=== PATIENT | female | born 1965 | race Caucasian/White ===

== ENCOUNTER 2020-08-16 14:01 | Inpatient (IN) | payer OTHER, SELFPAY ==
--- NOTE | ~2020-08-16 | XR_ITS ---
EXAMINATION: XR HIP, LEFT and one view of the pelvis CLINICAL INFORMATION: Pain post fall COMPARISON: None TECHNIQUE: Two views of the left hip and one view of the pelvis. FINDINGS: Bone alignment is normal. No fracture or dislocation is seen. The joint space is normal. Bones of the pelvis are normal. There is arthritis of the visualized lower lumbar spine. Soft tissue calcification adjacent to the bilateral inferior pubic rami. XR/XR hip LT w PEL1V IMPRESSION: No fracture or dislocation.
--- NOTE | ~2020-08-16 | CT_ITS ---
EXAMINATION: CTA CHEST and ABDOMEN AND PELVIS WITH CONTRAST CLINICAL INFORMATION: Tachycardia, assess for pulmonary embolism COMPARISON: No pertinent prior studies are available for comparison. TECHNIQUE: Multidetector volumetric imaging was performed from the thoracic inlet through the pubic symphysis following administration of oral and 100 mL of Omnipaque 300 intravenous contrast. Sagittal and coronal reformatted images were obtained on the technologist workstation. This CT examination was performed using dose optimization techniques as appropriate, variously including the following: *Automated exposure control *Adjustment of mA and/or kV according to patient size (this includes techniques or standardized protocols for targeted exams where dose is matched to indication/reason for exam; i.e. extremities or head) *Use of iterative reconstruction technique DLP: 1250 mGy-cm FINDINGS: CHEST: LUNGS: The lungs are clear with no evidence of inflammation or nodules. MEDIASTINUM: The mediastinum is deviation of the mediastinal structures to the left due to marked elevation/infiltration of the right hemidiaphragm. No hernia. There are acute pulmonary emboli to the segmental pulmonary arteries on the right and subsegmental pulmonary arteries on the left. Motion degradation limits assessment. There is a pulmonary infarct grossly. No evidence of a right heart strain. No pathologic adenopathy. No hilar or mediastinal lymphadenopathy. PERICARDIUM/PLEURA: There is no significant effusion. No pleural mass or thickening. CHEST WALL/AXILLA: Unremarkable. ABDOMEN/PELVIS: LIVER, GALLBLADDER, BILIARY TREE: The liver is normal in size, shape, and attenuation. No focal hepatic lesion or biliary ductal dilatation is present. The gallbladder is unremarkable with no evidence of radiopaque gallstones, gallbladder wall thickening, or pericholecystic inflammatory changes. PANCREAS: Unremarkable. SPLEEN: Unremarkable. ADRENAL GLANDS: Unremarkable. KIDNEYS AND URETERS: The kidneys are normal in size, shape, and attenuation. No hydronephrosis or hydroureter or calculi seen. No perinephric stranding. BLADDER: Unremarkable. GASTROINTESTINAL TRACT: Relatively pronounced diverticulosis without acute inflammatory changes. There is a relatively thick-walled segment of small bowel in the left upper abdomen uncertain significance. This can be seen with entities such as sprue. If there is clinical uncertainty, recommend MR or CT enterography electively for further assessment. Normal appendix. No fluid collection. ABDOMINAL WALL: Relatively small abdominal wall defect at the level the umbilicus with herniation of omentum. Defect measures approximately 2 cm craniocaudal and 2.2 cm transverse. No bowel involvement. LYMPH NODES: Normal. VASCULAR: Unremarkable. PELVIC VISCERA: Unremarkable. OSSEOUS STRUCTURES: Unremarkable. CT/CT angio chest PE protocol IMPRESSION: 1. There is evidence of segmental and subsegmental acute pulmonary emboli. 2. Diverticulosis without acute inflammatory changes. 3. There is a long segment of thickened small bowel in the left upper quadrant involving the jejunum. See discussion above. Recommend follow-up. Appearance favors nonspecific infectious inflammatory processes with infiltrating lesion is not excluded. No obstruction. 4. Abdominal wall hernia at the level of the umbilicus containing omentum only. This critical result was discussed with Destiny Valencia NP at 11:42 PM on 08/16/2020 and it was ascertained that the content and urgency of the report was understood at the time of direct communication.
--- NOTE | ~2020-08-16 | XR_ITS ---
EXAMINATION: XR LUMBOSACRAL SPINE CLINICAL INFORMATION: Low back pain status post fall COMPARISON: None TECHNIQUE: Three views of the lumbosacral spine. FINDINGS: Severe degenerative disc disease is seen at L1-2 and L2-3. There is normal lumbar lordosis and spinal alignment. Moderate bilateral hypertrophic facet arthropathy seen at L4-5 and L5-S1, right greater than left. The vertebral bodies are intact. The soft tissues are unremarkable. XR/XR lumbar spine 2-3V IMPRESSION: Multilevel degenerative changes as detailed above without definitive acute abnormality.
--- NOTE | ~2020-08-16 | CT_ITS ---
EXAMINATION: CT ENTEROGRAPHY ABDOMEN AND PELVIS WITH CONTRAST CLINICAL INFORMATION: Evaluate small intestine lesion/mass COMPARISON: Previous CT scan of the abdomen and pelvis 08/16/2020 TECHNIQUE: Study performed with oral VoLumen (1350 mL) and 480 mL of water to distend the abdomen. The patient was injected with 85 mL Omnipaque 350 intravenous contrast which was administered without adverse effect. Coronal and sagittal reformatted images were obtained at the technologist's workstation. This CT examination was performed using dose optimization techniques as appropriate, variously including the following: *Automated exposure control *Adjustment of mA and/or kV according to patient size (this includes techniques or standardized protocols for targeted exams where dose is matched to indication/reason for exam; i.e. extremities or head) *Use of iterative reconstruction technique DLP: 1466 mGy-cm FINDINGS: GASTROINTESTINAL FINDINGS: Exam is limited due to motion artifact. Stomach: Well-distended and normal in appearance. Small intestine: Satisfactorily distended. There are still distended fluid-filled loops of small bowel with mild proximal small bowel wall thickening similar to previous CT 08/16/2020. No definite small bowel mass is seen. There is no evidence of obstruction. Large intestine: Diverticulosis.. No perirectal changes demonstrated. The appendix is normal. Additional findings: No abnormal enhancement of the vasa recta or significant mesenteric or retroperitoneal lymphadenopathy is seen. No abdominal abscess or fistulous tract demonstrated. ABDOMINAL AND PELVIC CT FINDINGS: Liver, gallbladder, biliary tract: Fatty liver. Normal-appearing gallbladder and normal caliber bile ducts. Pancreas: Normal Spleen: Normal Adrenal glands and kidneys: Normal Ureters and bladder: Normal Lymphovascular structures: Normal Abdominal wall: Large umbilical hernia containing fat. Bones: Degenerative changes of the spine. Mild curvature of the lower lumbar spine to the right. Lung bases: Normal. CT/CT enterography IMPRESSION: Limited exam due to artifact from motion. Distended fluid-filled loops of small bowel with mild proximal small bowel wall thickening. No mass seen. Findings are similar to 08/16/2020 exam. Infectious and inflammatory processes should be considered, in particular a celiac disease. Diverticulosis of the colon. Large umbilical hernia containing fat. Fatty liver.
[2020-08-16 14:10] VITALS: BP 160/110; PULSE 120; O2SAT 97
[2020-08-16 15:50] VITALS: BP 154/103; PULSE 115; RESP 20; TEMP 37.4; O2SAT 94; BMI 61.2
--- NOTE | 2020-08-16 16:44 | ED_ITS ---
HPI - Back Pain/Injury General Chief Complaint: Back Pain/Injury Stated Complaint: LOW L BACK PAIN, H/O SAME Time Seen by Provider: 08/16/20 14:11 Source: patient and EMS Mode of arrival: EMS Limitations: no limitations History of Present Illness HPI Narrative: 54 y/o female with history of morbid obesity, low back pain for the last 2+ months, recently seen at Urgent Care and by her PCP and started on muscle relaxers & steroids who presents to the ED via EMS with left low back pain s/p fall this afternoon. She states she went to sit on a plastic chair in her kitchen when one of the legs broke and she fell on her buttocks. She was able to crawl to the living room and her family members were able to get her to thr cough. She reports left lower back pain in the same spot as before. No radiation, no numbness or tingling. She is only able to walk with short shuffling steps due to the pain. She describes it as severe spasm. No urinary symptoms, N/V or abdominal pain. No SOB, chest pain or palpitations. No li ghtheaded or dizziness. She also fell about a week and a half ago in her yard when she was trying to warehouse order picker dog poop & lost her balance. She lives home alone and has been having trouble getting around and performing her ADL's due to pain. MD elicited complaint: back pain, back injury and fall Pertinent past history: prior back pain Onset (ago): week(s) Timing: constant Severity: moderate Similar Symptoms Previously: Yes Quality: aching and spasming Location: left lower back Radiation: buttocks Exacerbating factors: movement and walking Context: fall Associated symptoms: difficulty walking Work related injury: No Related Data Home Medications Medication Instructions Recorded Confirmed Vitamin D3 1 tab PO DAILY 08/16/20 08/16/20 albuterol sulfate 2 puff INHALATION Q4-6H PRN 08/16/20 08/16/20 albuterol sulfate 3 ml INHALATION QID PRN 08/16/20 08/16/20 budesonide-formoterol [Symbicort] 2 puff INHALATION BID 08/16/20 08/16/20 cyclobenzaprine 1 tab PO TID PRN 08/16/20 08/16/20 gabapentin 1 cap PO TID 08/16/20 08/16/20 tizanidine 1 tab PO BEDTIME PRN 08/16/20 08/16/20 Allergies Allergy/AdvReac Type Severity Reaction Status Date / Time loratadine [From CLARITIN] AdvReac Unknown LOOSES HAIR Verified 08/16/20 15:49 BP pills AdvReac Unknown muscle Uncoded 06/10/20 07:58 cramps/ sobia horses Review of Systems Review of Systems: Constitutional: No Fever, No Chills ENT/Mouth: No sore throat, No Rhinorrhea, No Swallowing Difficulty Cardiovascular: No Chest Pain, No SOB Respiratory: No Cough, No Sputum Gastrointestinal: No Nausea, No Vomiting, No Diarrhea, No abdominal Pain Genitourinary: No Dysuria, No Urinary Frequency, No Hematuria Musculoskeletal: + joint pain (left SI), + Myalgias Skin: No Skin Lesions, No rash Neuro: No Weakness, No Numbness, No Dizziness, No Headache Psych: No Anxiety/Panic, No Depression Heme/Lymph: No Bruising, No Lymphadenopathy Endocrine: No Polyuria, No Polydipsia PMFSH Past Medical History Attestation statement: The following information was validated with the patient. Medical History Anxiety Asthma Carpal tunnel syndrome Hypertension Osteoarthritis of both knees Surgical History History of Family History Family History Father Lung cancer Mother No problems noted. Social History Social History Advance Directives: No Advance Directives Information Provided: Yes Patient : No Physical Exam Vital Signs: Vital Signs: Last Vital Signs Temp 99.3 F 08/16/20 15:50 Pulse 115 H 08/16/20 15:50 Resp 20 08/16/20 15:50 BP 154/103 H 08/16/20 15:50 Pulse Ox 94 08/16/20 15:50 Body Mass Index 61.2 Appearance: Alert. Oriented X3. No acute distress. Eyes: Pupils equal, round and reactive to light. ENT: Pharynx normal. Neck: Normal inspection. Neck supple. CVS: Tachycardic, regular rhythm. Pulses normal. Respiratory: No respiratory distress. Breath sounds normal. Abdomen: Morbidly obese and nontender. +BS x4, erythematous rash under pannus Skin: Skin warm and dry. Normal skin color. Normal skin turgor. Extremities: No lower extremity edema. Left hip tenderness laterally and posteriorly. Left SI joint tenderness. No ecchymosis. Neuro: Oriented X 3. No motor deficit. No sensory deficit. Very slow movement, in a wheelchair, very slow to get up. Course Course Course Narrative: 54 y/o female presenting with acute on chronic left lower back pain s/p fall from chair today when chair leg broke. XR lumbar spine is negative for acute fractures, showed degenerative changes. Concern about safety going home given limited mobility, pain, obesity and living home alone. Initially declining evaluation for STR but after speaking with family she is agreeable to PT evaluation and discussing placement options with Case Management tomorrow until her back pain and mobility are improved. Tachycardic on arrival, likely due to pain. Will check EKG and basic labs. Pain medications ordered, will reassess. Reevaluation(s) Reevaluation #1: HR improve low 100's, BP 150/110's. Denies being on any medications for HTN. Med rec pending. Labs show WBC 14K. UA with only trace LE, 1-4 WBC and 3+ epithetial cells & bacteria. Likely contaminated sample. No urinary symptoms. Will hold off on antibiotics for now. DDIMER markedly elevated 3294. Will need to r/o PE with CTA chest. She continues to deny SOB or chest pain. COVID swab ordered. Will also scan abd for other possible source of infection, and for better assessment of her left hip and buttock pain which continue to be her only complaint. Patient agreeable with plan. Signed out to Jessica COATS who will assume care. MDM - Back Pain/Injury MDM Narrative Medical decision making narrative: r/o lumbar compression fracture Differential Diagnosis Differential diagnosis: Likely lumbar radiculopathy, sciatica and strain of lumbar region Medical Records Attestation: I reviewed the patient's medical records. Lab Data Attestation: I reviewed the patient's lab results. Result diagrams: 08/16/20 17:31 08/16/20 17:31 Labs: Lab Results 08/16/20 08/16/20 08/16/20 Range/Units 17:31 17:31 17:31 WBC 14.7 H (4.8-10.8) X10*3/uL RBC 5.25 (4.20-5.50) X10*6/uL Hgb 15.0 (12.0-16.0) g/dl Hct 46.2 (37-47) % MCV 88.0 (80-98) fL MCH 28.6 (27.0-33.0) pg MCHC 32.5 (31.0-35.0) g/dl RDW 14.6 (11.0-16.0) % Plt Count 280 (160-400) X10*3/uL MPV 10.4 (9.4-12.3) fL Immature Gran % (Auto) 0.7 H (0.0-0.4) % Neut % (Auto) 67.7 (45-73) % Lymph % (Auto) 19.1 L (20-40) % Dauphin % (Auto) 10.5 (2-11) % Eos % (Auto) 1.7 (0-4) % Baso % (Auto) 0.3 (0-2) % Lymph # (Auto) 2.8 (1.2-4.9) X10*3/uL Dauphin # (Auto) 1.6 H (0.1-1.2) X10*3/uL Eos # (Auto) 0.3 (0.0-0.4) X10*3/uL Baso # (Auto) 0.0 (0.0-0.2) X10*3/uL Abs Immat Gran (auto) 0.10 H (0.00-0.03) X10*3/uL Absolute Neuts (auto) 10.0 H (2.0-8.3) X10*3/uL Absolute Nucleated RBC 0.000 (0.0-0.012) X10*3/uL Nucleated RBC % (auto) 0.0 (0.0-0.2) /100WBC Smear Tech's Comments VERIFIED D-Dimer NG/ML Sodium 137 (135-145) mmol/L Potassium 4.7 (3.3-5.1) mmol/L Chloride 98 (96-108) mmol/L Carbon Dioxide 24 (22-29) mmol/L Anion Gap 20 (12-20) BUN 21 H (9-16) mg/dL Creatinine 1.00 (0.5-1.4) mg/dL Estim Creat Clear Calc 94.5 Estimated GFR 58 Random Glucose 155 H (60-115) mg/dL Calcium 10.1 (8.4-10.2) mg/dL Magnesium 2.2 (1.6-2.6) mg/dL Urine Color YELLOW Urine Appearance HAZY Urine pH 5.5 (5.0-8.0) Ur Specific Emmett >= 1.030 H (1.005-1.025) Urine Protein TRACE (NEG-TRACE) MG/DL Urine Glucose (UA) NEG (NEG) MG/DL Urine Ketones 5 (NEG) MG/DL Urine Blood NEG (NEG) Urine Nitrite NEG (NEG) Ur Leukocyte Esterase TRACE H (NEG) Urine RBC 0 (0) /HPF Urine WBC 1-4 (0-4) /HPF Ur Squamous Epith Cells 3+ /LPF Amorphous Sediment 2+ /LPF Urine Bacteria 3+ /LPF Hyaline Casts 1-4 /LPF Urine Mucus TRACE /LPF 08/16/20 Range/Units 19:56 WBC (4.8-10.8) X10*3/uL RBC (4.20-5.50) X10*6/uL Hgb (12.0-16.0) g/dl Hct (37-47) % MCV (80-98) fL MCH (27.0-33.0) pg MCHC (31.0-35.0) g/dl RDW (11.0-16.0) % Plt Count (160-400) X10*3/uL MPV (9.4-12.3) fL Immature Gran % (Auto) (0.0-0.4) % Neut % (Auto) (45-73) % Lymph % (Auto) (20-40) % Dauphin % (Auto) (2-11) % Eos % (Auto) (0-4) % Baso % (Auto) (0-2) % Lymph # (Auto) (1.2-4.9) X10*3/uL Dauphin # (Auto) (0.1-1.2) X10*3/uL Eos # (Auto) (0.0-0.4) X10*3/uL Baso # (Auto) (0.0-0.2) X10*3/uL Abs Immat Gran (auto) (0.00-0.03) X10*3/uL Absolute Neuts (auto) (2.0-8.3) X10*3/uL Absolute Nucleated RBC (0.0-0.012) X10*3/uL Nucleated RBC % (auto) (0.0-0.2) /100WBC Smear Tech's Comments D-Dimer 3294 NG/ML Sodium (135-145) mmol/L Potassium (3.3-5.1) mmol/L Chloride (96-108) mmol/L Carbon Dioxide (22-29) mmol/L Anion Gap (12-20) BUN (9-16) mg/dL Creatinine (0.5-1.4) mg/dL Estim Creat Clear Calc Estimated GFR Random Glucose (60-115) mg/dL Calcium (8.4-10.2) mg/dL Magnesium (1.6-2.6) mg/dL Urine Color Urine Appearance Urine pH (5.0-8.0) Ur Specific Emmett (1.005-1.025) Urine Protein (NEG-TRACE) MG/DL Urine Glucose (UA) (NEG) MG/DL Urine Ketones (NEG) MG/DL Urine Blood (NEG) Urine Nitrite (NEG) Ur Leukocyte Esterase (NEG) Urine RBC (0) /HPF Urine WBC (0-4) /HPF Ur Squamous Epith Cells /LPF Amorphous Sediment /LPF Urine Bacteria /LPF Hyaline Casts /LPF Urine Mucus /LPF ECG Data Attestation: I personally reviewed and interpreted this ECG as follows: ECG interpretation date: 08/16/20 ECG interpretation time: 18:34 Interpretation: sinus tachycardia with occasional PVC's, HR 122 bpm, left ventricular hypertrophy, normal QRS, normal QTc Discharge Plan Discharge Prescriptions: No Action cyclobenzaprine 10 mg tablet 1 tab PO TID PRN (Reason: muscle spasm) RF: 0 albuterol sulfate 2.5 mg /3 mL (0.083 %) solution for nebulization 3 ml inhalation QID PRN (Reason: wheezing) RF: 0 tizanidine 4 mg tablet 1 tab PO BEDTIME PRN (Reason: muscle spasm) RF: 0 gabapentin 100 mg capsule 1 cap PO TID RF: 0 albuterol sulfate 90 mcg/actuation HFA aerosol inhaler 2 puff inhalation Q4-6H PRN (Reason: Dyspnea) RF: 0 budesonide-formoterol [Symbicort] 160-4.5 mcg/actuation HFA aerosol inhaler 2 puff inhalation BID RF: 0 Vitamin D3 1 tab PO DAILY RF: 0
--- NOTE | 2020-08-16 17:08 | ECG_ITS ---
Test Reason : tachycardic Blood Pressure : / mmHG Vent. Rate : 122 BPM Atrial Rate : 122 BPM P-R Int : 140 ms QRS Dur : 096 ms QT Int : 306 ms P-R-T Axes : 058 -33 049 degrees QTc Int : 436 ms Sinus tachycardia with occasional Premature ventricular complexes Possible Left atrial enlargement Left axis deviation Left ventricular hypertrophy Abnormal ECG No previous ECGs available Referred By: Ania Ronquillo Electronically Signed By:HERMILO HAYNES
[2020-08-16] MEDS: HYDROcodone Bit/Acetam 5/325 TABLET 1 TAB PO (17:33)
[2020-08-16 17:38] LABS: Glucose Urine UA NEG (NEG); Leukocyte Esterase Urine TRACE (NEG); Nitrite Urine NEG (NEG); PH 5.5 (5.0-8.0); Specific Gravity - Urine >= 1.030 (1.005-1.025); UACC Culture Trigger YES; Urine Blood NEG (NEG); Urine Ketones 5 MG/DL (NEG); Urine Protein TRACE MG/DL (NEG-TRACE)
[2020-08-16 17:42] LABS: Basophils Percent Auto 0.3 % (0-2); Eosinophils Absolute Auto 0.3 X10*3/uL (0.0-0.4); Eosinophils Percent Auto 1.7 % (0-4); Hematocrit 46.2 % (37-47); Imm Gran Pct Auto 0.7 % (0.0-0.4); Lymphocytes Absolute Auto 2.8 X10*3/uL (1.2-4.9); Lymphocytes Percent Auto 19.1 % (20-40); MANUAL DIFF FLAG SCAN; Mean Corpuscular HGB Conc 32.5 g/dl (31.0-35.0); Mean Corpuscular Hemoglobin 28.6 pg (27.0-33.0); Mean Platelet Volume 10.4 fL (9.4-12.3); Monocytes Absolute Auto 1.6 X10*3/uL (0.1-1.2); Monocytes Percent Auto 10.5 % (2-11); Neutrophils Percent Auto 67.7 % (45-73); Platelet Count 280 X10*3/uL (160-400); Red Blood Count 5.25 X10*6/uL (4.20-5.50); Red Cell Distribution Width 14.6 % (11.0-16.0); SCAN SMEAR FLAG 1; White Blood Count 14.7 X10*3/uL (4.8-10.8)
[2020-08-16 17:43] LABS: Appearance Urine HAZY; Color Urine YELLOW
[2020-08-16 17:50] LABS: Bacteria Urine 3+ /LPF; RBC Urine 0 /HPF (0); Squamous Epithelial Cell Urine 3+ /LPF
[2020-08-16 17:51] LABS: Amorphous Sediment Urine 2+ /LPF; Mucus Urine TRACE /LPF
[2020-08-16 17:59] LABS: SLIDE REVIEW VERIFIED
[2020-08-16 18:11] LABS: Anion Gap 20 (12-20); Blood Urea Nitrogen 21 mg/dL (9-16); Calcium 10.1 mg/dL (8.4-10.2); Carbon Dioxide 24 mmol/L (22-29); Chloride 98 mmol/L (96-108); Creatinine Clr Calc Pharmacy 94.5; Estimated Glomerular Filt Rate 58; Glucose Random 155 mg/dL (60-115); Magnesium 2.2 mg/dL (1.6-2.6); Potassium 4.7 mmol/L (3.3-5.1); Sodium 137 mmol/L (135-145)
[2020-08-16 20:31] LABS: D Dimer 3294 NG/ML
[2020-08-16 21:53] VITALS: BP 121/77; PULSE 113; RESP 16; TEMP 36.6; O2SAT 95
[2020-08-16 22:05] LABS: COVID-19 Test Negative (Negative); IDNOW Serial# 9DD0AD1C
[2020-08-16] MEDS: Nystatin Powder 15 GM BOTTLE 1 APPL TOPICAL (22:12)
--- NOTE | 2020-08-16 22:22 | PC.NURSE ---
PT GIVEN 2 TURKEY SANDWICHES TO EAT WITHOUT ISSUE AT 6 PM AND WATER IV PLACED TO RIGHT AC PT AWARE OF LAC AND ELEVATED D DIMER BY PARTHA CAMERON. PT AWAITING CT SCAN.
[2020-08-16] MEDS: iohexoL 350 MG/ML 100 ML INFUS..BTL 85 ML IV (23:21)
[2020-08-17] VITALS (7 sets, daily range): BP systolic 102–139; BP diastolic 73–102; PULSE 106–122; RESP 14–23; TEMP 36.2–37; O2SAT 92–95
[2020-08-17] MEDS: HYDROcodone Bit/Acetam 5/325 TABLET 2 TAB PO ×2 (01:07→15:51)
[2020-08-17] MEDS: Apixaban 5 MG TABLET 10 MG PO ×3 (01:07→21:37)
--- NOTE | 2020-08-17 01:51 | CA_ITS ---
Transthoracic Echocardiogram Patient (Last, First, Middle): Brittaney Wolf A Gender: Female Date of : 1965 Age: 54 Procedure Date: 08/17/2020 Procedure Type: Transthoracic Echocardiogram Location: ICU Height: 160.02 cm Weight: 156.95 kg BSA: 2.44 m2 Heart Rate: bpm BP: 107 / 86 mmHg Edge Molder: STEPHANIE Referring MD: Beatrice Saleem MD Symptoms: b/l PE Study Quality: Fair ECG Rhythm: Sinus tachycardia Conclusions: - The left ventricular systolic function is normal. The visually estimated ejection fraction is between 55-60%. - There is moderate calcification of the aortic valve. - There is moderate mitral annular calcification. - There is mild dilatation of the ascending aorta measuring 4.00 cm. Findings Left Ventricle Normal left ventricular cavity size. There is moderately increased left ventricular wall thickness. The left ventricular systolic function is normal. The visually estimated ejection fraction is between 55-60%. There is no evidence of regional wall motion abnormalities. Diastolic function is normal for age. Right Ventricle Normal right ventricular cavity size and systolic function. Atria Both atria are normal in size. Aortic Valve There is moderate calcification of the aortic valve. There is no aortic valve stenosis. The peak aortic velocity is 2.32 m/s with a calculated peak gradient of 22 mmHg. The mean gradient is 12 mmHg. The aortic valve area is 2.08 cm2. There is trace (trivial) aortic valve regurgitation. Mitral Valve There is moderate mitral annular calcification. There is mild mitral valve regurgitation. There is no mitral valve stenosis. Pulmonic Valve The pulmonic valve was not well visualized. Tricuspid Valve Normal tricuspid valve structure. There is trace tricuspid valve regurgitation. The pulmonary artery systolic pressure is normal. Great Vessels There is mild dilatation of the ascending aorta measuring 4.00 cm. Venous The inferior vena cava is mildly dilated and collapses less than 50% with inspiration. Pericardium/Pleural There is no evidence of pericardial effusion. Prior Study Comparison No prior study available for comparison. Measurements 2D Linear Measurements IVSd: 1.52 0.6-0.9/0.6-1.0 cm LVIDd: 3.99 3.9-5.3/4.2-5.9 cm LVIDd Index: 1.64 2.4-3.2/2.2-3.1 cm/m2 LVIDs: 2.78 2.0-3.6 cm LVPWd: 1.37 0.7-1.1 cm Ao Root: 3.30 2.1-3.5 cm LA Diam: 4.70 2.7-3.8/3.0-4.0 cm LAIDs Index: 1.93 1.5-2.3 cm/m2 LV Mass: 272.63 67-162/88-224 g LV Mass Index: 111.73 43-95/49-115 g/m2 LVOT Diam: 2.10 3.0+(-)1.3 cm 2D Systolic Function EF 4C: 53.80 >55% EF 2C: 55.10 >55% EF BiP: 54.40 >55% Mitral Valve E'Lateral: 9.03 E'Medial: 10.00 Aortic Valve AoV Pk Juanjo: 2.32 AoV Mn Juanjo: 1.66 AoV VTI: 0.32 AoV Pk Grad: 22.00 Aov Mn Grad: 12.00 JOAQUIM Cont.VTI: 2.08 LVOT LVOT Pk Juanjo: 1.24 LVOT Mn Juanjo: 0.88 LVOT VTI: 0.19 LVOT Pk Grad: 6.00 LVOT Mn Grad: 4.00 LVOT Diam: 2.10 LVOT Area: 3.46 Diastolic Function E'Medial: 10.00 E' Laterial: 9.03 Tricuspid Valve TR Pk Juanjo: 1.82 TR Pk Grad: 13.00 RA Press: 15.00 RVSP: 28.00 Great Vessels Aorta Ao Root-2D: 3.30 2.0-3.7 cm Ao Asc: 4.00 2.1-3.4 cm Ao Arch: 2.80 Updated in Other Vendor System with Status of Final Narciso Del Real MD electronically signed on 08/17/2020 5:50:47 PM with status of Final
[2020-08-17] MEDS: cefTRIAXone sodium 1 GM in 0.9 % Sodium Chloride 50 ML IV (02:16)
--- NOTE | 2020-08-17 06:20 | PM.IMHP ---
History of Present Illness Date of Service: 08/17/20 Chief Complaint: back pain This is a 54-year-old female with past medical history of anxiety, asthma ,morbid obesity, hypertension, osteoarthritis who presents to the hospital with complaints of worsening back pain. Patient reports that she developed chronic SI joint pain about a month ago and has been struggling with that, today she was sitting on a plastic chair, moved her chair slightly, the leg of the chair broke and she fell to the floor with worsening hip pain and therefore decided to come to the hospital. Her pain is mostly on the left side, worse with walking, when walking she feels like her legs give out but she has no weakness numbness or tingling. She also feels muscle spasm. At this time patient denies feeling any headache, change in vision, no shortness of breath, no cough, no sputum production, no abdominal pain nausea or vomiting, no diarrhea constipation, no urinary symptoms including no dysuria, urgency or frequency and no lower extremity edema. Patient reports that due to the pain in her hip she has been mostly bed-bound and very immobile for the past 1 month. Patient reports very minimal movement. On arrival to the ED patient hemodynamically stable with no significant abnormal vitals Labs showed WBC count of 14.7, otherwise unremarkable, UA positive for trace leukocyte Estrace and 1-4 WBC, as well as 3+ squamous epithelia cells. Elevated D-dimer. Due to the elevated D-dimer patient underwent CT angiogram that showed of segmental and subsegmental acute pulmonary emboli, diverticulosis with no acute inflammatory change, long segment of thickened small bowel in the left upper quadrant involving the jejunum, this is uncertain significance. Past medical history as below lung confirmed this patient Review of Systems Review of Systems: Yes all other systems are reviewed and are negative [facility] Medical History Anxiety Asthma Carpal tunnel syndrome Hypertension Osteoarthritis of both knees Family History Father Lung cancer Mother No problems noted. Surgical History History of Social History Smoked in Last 30 Days: No Advance Directives: No Advance Directives Information Provided: Yes Patient : No Meds Allergies Allergy/AdvReac Type Severity Reaction Status Date / Time loratadine [From CLARITIN] AdvReac Unknown LOOSES HAIR Verified 08/16/20 15:49 BP pills AdvReac Unknown muscle Uncoded 06/10/20 07:58 cramps/ sobia horses Active Medications: Current Medications Generic Name Dose Route Start Last Admin Trade Name Freq PRN Reason Stop Dose Admin Acetaminophen 650 mg 08/17/20 01:51 Acetaminophen 325 Mg Tablet PO Q6H PRN Pain, Mild (Pain Scale 1-3) Hydrocodone Bitart/Acetaminophen 2 tab 08/16/20 23:48 08/17/20 01:07 Hydrocodone Bit/Acetam 5/325 Tablet PO 1 tab Q6H PRN Administration Pain, Mild (Pain Scale 1-3) Albuterol Sulfate 2.5 mg 08/17/20 01:51 Albuterol Sulfate (0.083%) 2.5 Mg/3 Ml Vial.Neb INHALE RQID PRN wheezing Albuterol Sulfate 2 puff 08/17/20 01:51 Albuterol Sulfate 90 Mcg 8 Gm Inhaler INHALE RQ4H PRN Dyspnea Apixaban 10 mg 08/17/20 09:00 Apixaban 5 Mg Tablet PO BID BRI Cyclobenzaprine HCl 10 mg 08/17/20 01:51 Cyclobenzaprine Hcl 10 Mg Tablet PO TID PRN muscle spasm Docusate Sodium 100 mg 08/17/20 01:51 Docusate Sodium 100 Mg Capsule PO DAILY PRN Constipation Fluticasone/Vilanterol 1 puff 08/17/20 08:00 Fluticasone/Vilanterol 200/25 Blst.W.Dev INHALE RDAILY BRI Gabapentin 100 mg 08/17/20 01:51 08/17/20 03:09 Gabapentin 100 Mg Capsule PO Not Given TID BRI Morphine Sulfate 2 mg 08/17/20 01:51 Morphine Sulfate 2 Mg/Ml Cartridge IVPUSH Q4H PRN Pain, Severe (Pain Scale 7-10) Nystatin 1 appl 08/16/20 21:00 08/16/20 22:12 Nystatin Powder 15 Gm Bottle TOPICAL 1 appl BID BRI Administration Protocol Ondansetron HCl 4 mg 08/17/20 01:51 Ondansetron Hcl 4 Mg/2 Ml Vial IVPUSH Q8H PRN Nausea and Vomiting Pharmacy Consult 1 each 08/16/20 18:50 Consult Rx Perform Med Rec MISCELLANE ONCE PRN Consult order Sodium Chloride 3 ml 08/17/20 08:00 0.9 % Sodium Chloride Flush 3 Ml Syringe IVFLUSH QSHIFT [facility] Tizanidine HCl 4 mg 08/17/20 01:51 Tizanidine Hcl 4 Mg Tablet PO BEDTIME PRN muscle spasm Home Medications Medication Instructions Recorded Confirmed Last Taken Type Vitamin D3 1 tab PO DAILY 08/16/20 08/16/20 08/15/20 History albuterol sulfate 2 puff INHALATION Q4-6H PRN 08/16/20 08/16/20 Unknown History albuterol sulfate 3 ml INHALATION QID PRN 08/16/20 08/16/20 Unknown History budesonide-formoterol [Symbicort] 2 puff INHALATION BID 08/16/20 08/16/20 Unknown History cyclobenzaprine 1 tab PO TID PRN 08/16/20 08/16/20 08/15/20 History gabapentin 1 cap PO TID 08/16/20 08/16/20 08/15/20 History tizanidine 1 tab PO BEDTIME PRN 08/16/20 08/16/20 08/15/20 History Physical Exam Vital Signs and Narrative: Vital Signs: Last Vital Signs Temp 97.8 F 08/16/20 21:53 Pulse 113 H 08/16/20 21:53 Resp 16 08/16/20 21:53 BP 121/77 08/16/20 21:53 Pulse Ox 95 08/16/20 21:53 Body Mass Index 61.2 Const: General: cooperative and no acute distress Orientation/consciousness: patient oriented x3 Eyes: General: appearance normal, both eyes and all related structures Resp: Effort & Inspection: normal respiratory effort and able to speak in complete sentences Cardio: Rate: regular rate Rhythm: regular rhythm GI: Palpation (GI): Soft to palpation Auscultation: normal bowel sounds Skin: General skin exam: no rashes or lesions noted Neuro: General: patient oriented x3 Cognition (Neuro): normal cognition Extrem: General: Yes normal to inspection and Yes no pedal edema Results Labs CBC and Chem 7: 08/16/20 17:31 08/16/20 17:31 Labs: Laboratory Results - last 24 hr 08/16/20 08/16/20 08/16/20 17:31 17:31 17:31 MCV 88.0 MCH 28.6 MCHC 32.5 RDW 14.6 Plt Count 280 MPV 10.4 Immature Gran % (Auto) 0.7 H Neut % (Auto) 67.7 Lymph % (Auto) 19.1 L Blaine % (Auto) 10.5 Eos % (Auto) 1.7 Baso % (Auto) 0.3 Lymph # (Auto) 2.8 Blaine # (Auto) 1.6 H Eos # (Auto) 0.3 Baso # (Auto) 0.0 Abs Immat Gran (auto) 0.10 H Absolute Neuts (auto) 10.0 H Absolute Nucleated RBC 0.000 Nucleated RBC % (auto) 0.0 Smear Tech's Comments VERIFIED D-Dimer Anion Gap 20 Estim Creat Clear Calc 94.5 Estimated GFR 58 Random Glucose 155 H Calcium 10.1 Magnesium 2.2 Urine Color YELLOW Urine Appearance HAZY Urine pH 5.5 Ur Specific [place] >= 1.030 H Urine Protein TRACE Urine Glucose (UA) NEG Urine Ketones 5 Urine Blood NEG Urine Nitrite NEG Ur Leukocyte Esterase TRACE H Urine RBC 0 Urine WBC 1-4 Ur Squamous Epith Cells 3+ Amorphous Sediment 2+ Urine Bacteria 3+ Hyaline Casts 1-4 Urine Mucus TRACE COVID-19 (JESSICA) COVID-19 Clin Com 08/16/20 08/16/20 19:56 21:19 MCV MCH MCHC RDW Plt Count MPV Immature Gran % (Auto) Neut % (Auto) Lymph % (Auto) Blaine % (Auto) Eos % (Auto) Baso % (Auto) Lymph # (Auto) Blaine # (Auto) Eos # (Auto) Baso # (Auto) Abs Immat Gran (auto) Absolute Neuts (auto) Absolute Nucleated RBC Nucleated RBC % (auto) Smear Tech's Comments D-Dimer 3294 Anion Gap Estim Creat Clear Calc Estimated GFR Random Glucose Calcium Magnesium Urine Color Urine Appearance Urine pH Ur Specific [place] Urine Protein Urine Glucose (UA) Urine Ketones Urine Blood Urine Nitrite Ur Leukocyte Esterase Urine RBC Urine WBC Ur Squamous Epith Cells Amorphous Sediment Urine Bacteria Hyaline Casts Urine Mucus COVID-19 (JESSICA) Negative COVID-19 Clin Com See Note Imaging Radiologist's Impressions: Impressions Lumbar Spine X-Ray 08/16/20 14:11 IMPRESSION: Multilevel degenerative changes as detailed above without definitive acute abnormality. Hip/Pelvis X-Ray 08/16/20 19:00 IMPRESSION: No fracture or dislocation. Chest CTA 08/16/20 20:36 IMPRESSION: 1. There is evidence of segmental and subsegmental acute pulmonary emboli. 2. Diverticulosis without acute inflammatory changes. 3. There is a long segment of thickened small bowel in the left upper quadrant involving the jejunum. See discussion above. Recommend follow-up. Appearance favors nonspecific infectious inflammatory processes with infiltrating lesion is not excluded. No obstruction. 4. Abdominal wall hernia at the level of the umbilicus containing omentum only. This critical result was discussed with Destiny Valencia NP at 11:42 PM on 08/16/2020 and it was ascertained that the content and urgency of the report was understood at the time of direct communication. Abdomen/Pelvis CT 08/16/20 20:39 IMPRESSION: 1. There is evidence of segmental and subsegmental acute pulmonary emboli. 2. Diverticulosis without acute inflammatory changes. 3. There is a long segment of thickened small bowel in the left upper quadrant involving the jejunum. See discussion above. Recommend follow-up. Appearance favors nonspecific infectious inflammatory processes with infiltrating lesion is not excluded. No obstruction. 4. Abdominal wall hernia at the level of the umbilicus containing omentum only. This critical result was discussed with Destiny Valencia NP at 11:42 PM on 08/16/2020 and it was ascertained that the content and urgency of the report was understood at the time of direct communication. Assessment and Plan (1) Bilateral pulmonary embolism: Status: Acute (2) Somatic dysfunction of left sacroiliac joint: Status: Acute (3) Lumbar paraspinal muscle spasm: Status: Acute This is a 54-year-old female who presents to the hospital with back as well as SI joint pain who is found to have PE. # bilateral PE - most likely induced by immobility and bed-bound status for the past 1 month due to the back pain - no evidence of right heart strain on CT angiogram - will start her on Eliquis 10 mg b.i.d. for 1 week followed by 5 b.i.d. - denies any lower extremity swelling, or pain - echocardiogram to rule out right heart strain - normal BNP # back pain as well as hip pain - continue pain management - muscle relaxer # Jejunum thickening seen on CT - non-specific - pt denies abd pain, diarrhea - may require f/p op # anxiety - continue tizanidine # asthma - not in exacerbation - continue home inhalers DVT prophylaxis: Mirian
[2020-08-17] MEDS: 0.9 % Sodium Chloride Flush 3 ML SYRINGE IVFLUSH ×3 (10:22→23:52)
[2020-08-17] MEDS: Fluticasone/Vilanterol 200/25 BLST.W.DEV 1 PUFF INHALE (10:23)
--- NOTE | 2020-08-17 15:25 | PC.NURSE ---
Assumed care at 1000am; patient admitted from Emergency room, [facility] [place] overflow patient. Patient is alert and oriented, denies pain, folliows commands, responds appropriately. Patient is on room air, breathing regularly and easily, denies chest discomfort or increased work of breathing. SpO2 91-95% on room air; lung sounds clear with dim bases, occassional dry cough. Patient HR has been slightly elevated, sinus tachycardia rate has been 110's - 120s at rest, up to 130s while oob to the coomode. Patient with malodorous urine, MD aware, UA had been collected and Urine cx is pending. Patient has some lower back pain, which is mostly about her hips, and affects her left hip more than her right hip at this time. Patient was medicated with Lorcet per Emar, but refused 2 tablets, which is how med is ordered, and was administered only one tablet, with good effect--pain was 5/10 dull ache and nonradiating, and is 0/10 on recheck; MD was notified as to difference between how patient takes the med and how it is ordered---no new orders at this time. Med education provided. Patient resting comfortably in bed now. Continuing to monitor.
[2020-08-17] MEDS: Nystatin Powder 15 GM BOTTLE 1 APPL TOPICAL (21:37)
[2020-08-18] VITALS (7 sets, daily range): BP systolic 107–168; BP diastolic 55–84; PULSE 97–119; RESP 15–22; TEMP 36.4–37.1; O2SAT 93–96
[2020-08-18] MEDS: HYDROcodone Bit/Acetam 5/325 TABLET 2 TAB PO ×2 (00:48→08:36)
[2020-08-18 05:28] LABS: MANUAL DIFF FLAG NO
[2020-08-18 05:55] LABS: Anion Gap 14 (12-20); Blood Urea Nitrogen 20 mg/dL (9-16); Calcium 9.3 mg/dL (8.4-10.2); Carbon Dioxide 28 mmol/L (22-29); Chloride 103 mmol/L (96-108); Creatinine Clr Calc Pharmacy 122.7; Estimated Glomerular Filt Rate > 60; Glucose Random 158 mg/dL (60-115); Potassium 4.5 mmol/L (3.3-5.1); Sodium 140 mmol/L (135-145)
[2020-08-18 06:00] LABS: Basophils Percent Auto 0.2 % (0-2); Eosinophils Absolute Auto 0.2 X10*3/uL (0.0-0.4); Eosinophils Percent Auto 2.5 % (0-4); Hematocrit 38.9 % (37-47); Hemoglobin 12.4 g/dl (12.0-16.0); Imm Gran Abs Auto 0.06 X10*3/uL (0.00-0.03); Imm Gran Pct Auto 0.7 % (0.0-0.4); Lymphocytes Absolute Auto 2.3 X10*3/uL (1.2-4.9); Lymphocytes Percent Auto 27.3 % (20-40); Mean Corpuscular HGB Conc 31.9 g/dl (31.0-35.0); Mean Corpuscular Hemoglobin 28.4 pg (27.0-33.0); Mean Corpuscular Volume 89.2 fL (80-98); Mean Platelet Volume 10.6 fL (9.4-12.3); Monocytes Absolute Auto 0.8 X10*3/uL (0.1-1.2); Monocytes Percent Auto 9.3 % (2-11); Platelet Count 210 X10*3/uL (160-400); Red Blood Count 4.36 X10*6/uL (4.20-5.50); White Blood Count 8.4 X10*3/uL (4.8-10.8)
[2020-08-18] MEDS: Apixaban 5 MG TABLET 10 MG PO (08:36)
[2020-08-18] MEDS: 0.9 % Sodium Chloride Flush 3 ML SYRINGE IVFLUSH ×3 (08:47→20:40)
--- NOTE | 2020-08-18 08:49 | MHC.CM.PN ---
Met with pt to discuss d/c planing: Pt states she resides alone and was working fulltime. She had an injury to her back and has been out of work and primarily bed ridden. She drives and has a son close by who can assist with small tasks if needed. Pt seen by PT who recommends STR. Pt agrees to broad payor based referrals - very worried about completing FMLA forms - referred her to f/u with her PCP - informed her that her [facility] visit summary will be sent to PCP office to assist with FMLA completion. Awaiting accepting SNF at this time.
[2020-08-18] MEDS: Docusate Sodium 100 MG CAPSULE PO (09:00)
[2020-08-18] MEDS: Nystatin Powder 15 GM BOTTLE 1 APPL TOPICAL ×2 (09:01→20:40)
[2020-08-18] MEDS: TiZANidine HCL 4 MG TABLET PO ×2 (10:36→20:47)
--- NOTE | 2020-08-18 14:08 | P.CNGI_ITS ---
History of Present Illness Data of Consult Service Date: 08/18/20 Requesting physician: Mya Schuler Primary Care Provider: Vinod Little, [facility]- HPI Reason for consult: abn imaging 54-year-old female with past medical history of anxiety, asthma ,morbid obesity, hypertension, osteoarthritis who I am seeing for assessment for abnormal bowel imaging. She actually came with increased back pain for 1 month being treated by providers with steroids and musc relaxants for presumed SI joint dysfunction. She has not been v mobile and has been having weakness in legs with pain on left lower back area worse with walking As part of w/u she had D-dimer checked which was pos, imaging then revealed segmental and subsegmental acute pulmonary emboli as well as diverticulosis with no acute inflammatory change, long segment of thickened small bowel in the left upper quadrant involving the jejunum of uncertain significance She denies feeling any headache, change in vision, no shortness of breath, no cough, no sputum production, no abdominal pain, nausea or vomiting, no diarrhea, constipation, no urinary symptoms including no dysuria, urgency or frequency and no lower extremity edema. Appetite and weight stable. Labs showed WBC count of 14.7, otherwise unremarkable, UA positive for trace leukocyte Estrace and 1-4 WBC, as well as 3+ squamous epithelia cells. Elevated D-dimer. Review of Systems Review of Systems: Constitutional : No Weight loss, No Fever, No Chills ENT/Mouth : No sore throat, No Rhinorrhea Eyes: No Swelling, No Redness Cardiovascular : No Chest Pain, No SOB, No Edema Respiratory : No Cough, No Sputum, No Wheezing Gastrointestinal : see HPI Genitourinary : NO Dysuria, No Urinary Frequency, No Hematuria, No Urgency Musculoskeletal : back pain Skin : No Skin Lesions, No rash Neuro : No facial droop Psych : No Anxiety/Panic, No Depression Heme/Lymph: No Bruising, No Lymphadenopathy Endocrine : No Polyuria, No Polydipsia All other systems reviewed and are negative. [facility] Past Medical History Medical History Anxiety Asthma Carpal tunnel syndrome Hypertension Osteoarthritis of both knees Family History Family History Father Lung cancer Mother No problems noted. Surgical History Surgical History History of Social History Social History Household Members: None Household Members Other:: PET DOG Housing: Apartment Do you presently have visiting nurse or other home services: No Smoking Status: Never smoker Smoked in Last 30 Days: No Second Hand Smoke Exposure: No Use of substances other than those prescribed or required for medical reasons: No Currently Displaying Signs/Symptoms of Drug Intoxication Withdrawal: No Have you been hit, kicked, punched, or otherwise hurt by someone within the past year? If so, by whom?: No Do you feel safe in your current relationship?: No Current Relationship Is there a partner from a previous relationship who is making you feel unsafe now?: No Are you made to feel afraid or neglected: No Spiritual Healthcare Practices: no Gnosticist Healthcare Practices: no Cultural Healthcare Practices: no Advance Directives: No Advance Directives Information Provided: Yes Do you have thoughts of harming others: None Do you have a plan to hurt others: No Plan Recently lost weight without trying: No Eating poorly because of decreased appetite: Yes Nutrition Risks: No Nutritional Risk Patient : No : No Poor oral hygiene: No service: No Current occupational status: employed Meds Allergies Allergy/AdvReac Type Severity Reaction Status Date / Time loratadine [From CLARITIN] AdvReac Unknown LOOSES HAIR Verified 08/16/20 15:49 BP pills AdvReac Unknown muscle Uncoded 06/10/20 07:58 cramps/ sobia horses Active Medications: Current Medications Generic Name Dose Route Start Last Admin Trade Name Freq PRN Reason Stop Dose Admin Acetaminophen 650 mg 08/17/20 01:51 Acetaminophen 325 Mg Tablet PO Q6H PRN Pain, Mild (Pain Scale 1-3) Hydrocodone Bitart/Acetaminophen 2 tab 08/16/20 23:48 08/18/20 08:36 Hydrocodone Bit/Acetam 5/325 Tablet PO 2 tab Q6H PRN Administration Pain, Mild (Pain Scale 1-3) Albuterol Sulfate 2.5 mg 08/17/20 01:51 Albuterol Sulfate (0.083%) 2.5 Mg/3 Ml Vial.Neb INHALE RQID PRN wheezing Albuterol Sulfate 2 puff 08/17/20 01:51 Albuterol Sulfate 90 Mcg 8 Gm Inhaler INHALE RQ4H PRN Dyspnea Cyclobenzaprine HCl 10 mg 08/17/20 01:51 Cyclobenzaprine Hcl 10 Mg Tablet PO TID PRN muscle spasm Docusate Sodium 100 mg 08/17/20 01:51 08/18/20 09:00 Docusate Sodium 100 Mg Capsule PO 100 mg DAILY PRN Administration Constipation Enoxaparin Sodium 150 mg 08/18/20 21:00 Enoxaparin Sodium 150 Mg/Ml Syringe SUBCUT Q12H BRI Fluticasone/Vilanterol 1 puff 08/17/20 08:00 08/18/20 07:59 Fluticasone/Vilanterol 200/25 Blst.W.Dev INHALE Not Given RDAILY BRI Gabapentin 100 mg 08/17/20 01:51 08/18/20 08:48 Gabapentin 100 Mg Capsule PO Not Given TID BRI Nystatin 1 appl 08/16/20 21:00 08/18/20 09:01 Nystatin Powder 15 Gm Bottle TOPICAL 1 appl BID BRI Administration Protocol Ondansetron HCl 4 mg 08/17/20 01:51 Ondansetron Hcl 4 Mg/2 Ml Vial IVPUSH Q8H PRN Nausea and Vomiting Pharmacy Consult 1 each 08/16/20 18:50 Consult Rx Perform Med Rec MISCELLANE ONCE PRN Consult order Sodium Chloride 3 ml 08/17/20 08:00 08/18/20 08:47 0.9 % Sodium Chloride Flush 3 Ml Syringe IVFLUSH 3 ml QSHIFT BRI Administration Tizanidine HCl 4 mg 08/17/20 01:51 08/18/20 10:36 Tizanidine Hcl 4 Mg Tablet PO 4 mg BEDTIME PRN Administration muscle spasm Home Medications Medication Instructions Recorded Confirmed Last Taken Type Vitamin D3 1 tab PO DAILY 08/16/20 08/16/20 08/15/20 History albuterol sulfate 2 puff INHALATION Q4-6H PRN 08/16/20 08/16/20 Unknown History albuterol sulfate 3 ml INHALATION QID PRN 08/16/20 08/16/20 Unknown History cyclobenzaprine 1 tab PO TID PRN 08/16/20 08/16/20 08/15/20 History gabapentin 1 cap PO TID 0508/16/20 08/15/20 History tizanidine 1 tab PO BEDTIME PRN 08/16/20 08/16/20 08/15/20 History Physical Exam Vital Signs: Vital Signs: Last Vital Signs Temp 98.8 F 08/18/20 11:40 Pulse 99 08/18/20 11:40 Resp 18 08/18/20 11:40 BP 133/77 08/18/20 11:40 Pulse Ox 95 08/18/20 11:40 Body Mass Index 61.2 EXAM: GENERAL: The patient is well developed and nontoxic, obese ++ VITAL SIGNS:see workflow HEENT: Nonicteric sclerae, PERRLA, EOMI. Oropharynx clear. Moist mucous membran es. Conjunctivae appear well perfused. No thyroid mass. CHEST: Chest wall is nontender. HEART: Regular rate and rhythm without murmurs. LUNGS: Clear to auscultation bilaterally. ABDOMEN: Soft, positive bowel sounds, nontender, no organomegaly.no flank tenderness SKIN: No rash, no excessive bruising, petechiae, or purpura. NEUROLOGIC: Cranial nerves II-XII intact without motor/sensory deficit. Eyes: General: appearance normal, both eyes and all related structures Skin: General skin exam: no rashes or lesions noted Extrem: General: No clubbing Psych: Appearance: grossly normal Results Labs CBC & Chem 7: 08/18/20 05:20 08/18/20 05:20 Labs: Short CBC 08/18/20 Range/Units 05:20 WBC 8.4 (4.8-10.8) X10*3/uL Hgb 12.4 (12.0-16.0) g/dl Hct 38.9 (37-47) % Plt Count 210 (160-400) X10*3/uL BMP 08/18/20 05:20 Sodium 140 Potassium 4.5 Chloride 103 Carbon Dioxide 28 BUN 20 H Creatinine 0.[address] personally reviewed, thickened small bowel noted appears to be distal duodenum and prox jejunum Microbiology Microbiology Results: Microbiology 08/16/20 17:34 Urine clean catch - Clean Catch Midstream Urine Culture - Final Assessment and Plan (1) Bilateral pulmonary embolism: Status: Acute (2) Mural thickening of small intestine: Status: Acute 1/ Abn imaging of proximal small bowel with background back pain and immobility. Crohns might be one explanation, other would be infiltrative disease such as lymphoma, neoplasia, amyloidosis PLAN: 1/ CTe to further analyze sma;; bowel 2/ depending on results can plan for push enteroscopy vs balloon enteroscopy 3/ consider putting on lovenox or heparin drip so will be wasy to do procedure if indicated Procedures Date of Service Date of Service: 08/18/20
--- NOTE | 2020-08-18 14:50 | P.PNIM_ITS ---
Subjective Subjective Date of Service: 08/18/20 Interval History: the patient was seen and evaluated this morning Laying in bed, feels little better but still tachycardic and feels shortness of breath with minimal exertion Denies any fever, chills or chest pain No reported other overnight events. Systemic review: No fever, chills or weakness No chest pain, feels heart racing Dyspnea on exertion with no cough No abdominal pain, nausea or vomiting No urinary symptoms No any rash or wounds Physical Exam Vital Signs: Vital Signs: Last Vital Signs Temp 98.8 F 08/18/20 11:40 Pulse 99 08/18/20 11:40 Resp 18 08/18/20 11:40 BP 133/77 08/18/20 11:40 Pulse Ox 95 08/18/20 11:40 Body Mass Index 61.2 Const: Other: Constitutional : Alert, oriented, morbidly obese, mild respiratory distress Neck : Normal inspection, Supple Cardiovascular : RRR, S1 S2, no lower extremity edema Respiratory : Fair bilateral air entry, no crackles, wheezes or rhonchi Gastrointestinal: soft, lax, Normal bowel sounds, Non tender Skin : Warm/Dry, No rash Neurological : Alert & oriented x3, No focal deficit Objective Data Current Medications Generic Name Dose Route Start Last Admin Trade Name Freq PRN Reason Stop Dose Admin Acetaminophen 650 mg 08/17/20 01:51 Acetaminophen 325 Mg Tablet PO Q6H PRN Pain, Mild (Pain Scale 1-3) Hydrocodone Bitart/Acetaminophen 2 tab 08/16/20 23:48 08/18/20 08:36 Hydrocodone Bit/Acetam 5/325 Tablet PO 2 tab Q6H PRN Administration Pain, Mild (Pain Scale 1-3) Albuterol Sulfate 2.5 mg 08/17/20 01:51 Albuterol Sulfate (0.083%) 2.5 Mg/3 Ml Vial.Neb INHALE RQID PRN wheezing Albuterol Sulfate 2 puff 08/17/20 01:51 Albuterol Sulfate 90 Mcg 8 Gm Inhaler INHALE RQ4H PRN Dyspnea Cyclobenzaprine HCl 10 mg 08/17/20 01:51 Cyclobenzaprine Hcl 10 Mg Tablet PO TID PRN muscle spasm Docusate Sodium 100 mg 08/17/20 01:51 08/18/20 09:00 Docusate Sodium 100 Mg Capsule PO 100 mg DAILY PRN Administration Constipation Enoxaparin Sodium 150 mg 08/18/20 21:00 Enoxaparin Sodium 150 Mg/Ml Syringe SUBCUT Q12H [facility] Fluticasone/Vilanterol 1 puff 08/17/20 08:00 08/18/20 07:59 Fluticasone/Vilanterol 200/25 Blst.W.Dev INHALE Not Given RDAILY BRI Gabapentin 100 mg 08/17/20 01:51 08/18/20 14:24 Gabapentin 100 Mg Capsule PO Not Given TID BRI Nystatin 1 appl 08/16/20 21:00 08/18/20 09:01 Nystatin Powder 15 Gm Bottle TOPICAL 1 appl BID BRI Administration Protocol Ondansetron HCl 4 mg 08/17/20 01:51 Ondansetron Hcl 4 Mg/2 Ml Vial IVPUSH Q8H PRN Nausea and Vomiting Pharmacy Consult 1 each 08/16/20 18:50 Consult Rx Perform Med Rec MISCELLANE ONCE PRN Consult order Sodium Chloride 3 ml 08/17/20 08:00 08/18/20 08:47 0.9 % Sodium Chloride Flush 3 Ml Syringe IVFLUSH 3 ml QSHIFT BRI Administration Tizanidine HCl 4 mg 08/17/20 01:51 08/18/20 10:36 Tizanidine Hcl 4 Mg Tablet PO 4 mg BEDTIME PRN Administration muscle spasm Labs CBC & Chem 7: 08/18/20 05:20 08/18/20 05:20 Microbiology Microbiology Results: Microbiology 08/16/20 17:34 Urine clean catch - Clean Catch Midstream Urine Culture - Final Assessment and Plan (1) Bilateral pulmonary embolism: Status: Acute (2) Somatic dysfunction of left sacroiliac joint: Status: Acute (3) Lumbar paraspinal muscle spasm: Status: Acute Assessment and Plan: This is a 54-year-old female who presents to the hospital with back as well as SI joint pain who is found to have PE. bilateral PE most likely induced by immobility and bed-bound status for the past 1 month due to the back pain\underlying malignancy no evidence of right heart strain on CT angiogram Discontinue Eliquis Start subcutaneous Lovenox full does echocardiogram showing EF 55-60% with moderate aortic and mitral valves calcifications normal BNP back pain as well as hip pain continue pain management muscle relaxer Small intestine lesion seen on CT in jejunal area pt denies abd pain, diarrhea GI will evaluate the patient with EGD on or Monday anxiety continue tizanidine asthma not in exacerbation continue home inhalers DVT prophylaxis Eliquis
[2020-08-18] MEDS: Cyclobenzaprine HCl 10 MG TABLET PO (15:53)
[2020-08-18] MEDS: Sorbitol/Mannit/Xanth Imaging 500 ML LIQUID 1500 ML PO (17:42)
[2020-08-18] MEDS: iohexoL 350 MG/ML 100 ML INFUS..BTL IV (17:44)
[2020-08-18] MEDS: Enoxaparin Sodium 150 MG/ML SYRINGE SUBCUT (20:39)
[2020-08-19] MEDS: Cyclobenzaprine HCl 10 MG TABLET PO ×3 (01:11→17:29)
[2020-08-19 03:04] VITALS: BP 111/58; PULSE 104; RESP 18; TEMP 36.9; O2SAT 96
[2020-08-19 06:30] LABS: Hematocrit 37.7 % (37-47); Hemoglobin 12.2 g/dl (12.0-16.0); Mean Corpuscular HGB Conc 32.4 g/dl (31.0-35.0); Mean Corpuscular Hemoglobin 28.6 pg (27.0-33.0); Mean Corpuscular Volume 88.3 fL (80-98); Mean Platelet Volume 10.5 fL (9.4-12.3); Platelet Count 229 X10*3/uL (160-400); Red Blood Count 4.27 X10*6/uL (4.20-5.50); Red Cell Distribution Width 14.9 % (11.0-16.0); White Blood Count 10.9 X10*3/uL (4.8-10.8)
[2020-08-19 06:50] LABS: Anion Gap 15 (12-20); Blood Urea Nitrogen 16 mg/dL (9-16); Calcium 9.4 mg/dL (8.4-10.2); Carbon Dioxide 29 mmol/L (22-29); Chloride 100 mmol/L (96-108); Creatinine Clr Calc Pharmacy 122.7; Estimated Glomerular Filt Rate > 60; Glucose Random 161 mg/dL (60-115); Potassium 4.2 mmol/L (3.3-5.1); Sodium 140 mmol/L (135-145)
[2020-08-19 07:33] VITALS: BP 143/75; PULSE 121; RESP 20; TEMP 36.5; O2SAT 93
[2020-08-19] MEDS: 0.9 % Sodium Chloride Flush 3 ML SYRINGE IVFLUSH ×3 (08:14→21:10)
[2020-08-19] MEDS: Enoxaparin Sodium 150 MG/ML SYRINGE SUBCUT ×2 (08:15→21:10)
--- NOTE | 2020-08-19 10:55 | P.PNIM_ITS ---
Subjective Subjective Date of Service: 08/19/20 Interval History: the patient was seen and evaluated this morning Laying in bed, feels better overall but still tachycardic and dyspnea with minimal exertion Denies any fever, chills or chest pain No reported other overnight events. Systemic review: No fever, chills but complaining of a lot of back pain No chest pain, feels heart racing Dyspnea on exertion with no cough No abdominal pain, nausea or vomiting No urinary symptoms No any rash or wounds Physical Exam Vital Signs: Vital Signs: Last Vital Signs Temp 97.7 F 08/19/20 07:33 Pulse 121 H 08/19/20 07:33 Resp 20 08/19/20 07:33 BP 143/75 H 08/19/20 07:33 Pulse Ox 93 08/19/20 07:33 Body Mass Index 61.2 Const: Other: Constitutional : Alert, oriented, morbidly obese, mild respiratory distress Neck : Normal inspection, Supple Cardiovascular : RRR, S1 S2, sinus tachycardia, no lower extremity edema Respiratory : Fair bilateral air entry, no crackles, wheezes or rhonchi Gastrointestinal: soft, lax, Normal bowel sounds, Non tender Skin : Warm/Dry, No rash Neurological : Alert & oriented x3, No focal deficit Objective Data Current Medications Generic Name Dose Route Start Last Admin Trade Name Freq PRN Reason Stop Dose Admin Acetaminophen 650 mg 08/17/20 01:51 Acetaminophen 325 Mg Tablet PO Q6H PRN Pain, Mild (Pain Scale 1-3) Hydrocodone Bitart/Acetaminophen 2 tab 08/16/20 23:48 08/18/20 08:36 Hydrocodone Bit/Acetam 5/325 Tablet PO 2 tab Q6H PRN Administration Pain, Mild (Pain Scale 1-3) Albuterol Sulfate 2.5 mg 08/17/20 01:51 Albuterol Sulfate (0.083%) 2.5 Mg/3 Ml Vial.Neb INHALE RQID PRN wheezing Albuterol Sulfate 2 puff 08/17/20 01:51 Albuterol Sulfate 90 Mcg 8 Gm Inhaler INHALE RQ4H PRN Dyspnea Cyclobenzaprine HCl 10 mg 08/17/20 01:51 08/19/20 01:11 Cyclobenzaprine Hcl 10 Mg Tablet PO 10 mg TID PRN Administration muscle spasm Docusate Sodium 100 mg 08/17/20 01:51 08/18/20 09:00 Docusate Sodium 100 Mg Capsule PO 100 mg DAILY PRN Administration Constipation Enoxaparin Sodium 150 mg 08/18/20 21:00 08/19/20 08:15 Enoxaparin Sodium 150 Mg/Ml Syringe SUBCUT 150 mg Q12H BRI Administration Fluticasone/Vilanterol 1 puff 08/17/20 08:00 08/19/20 07:30 Fluticasone/Vilanterol 200/25 Blst.W.Dev INHALE Not Given RDAILY BRI Gabapentin 100 mg 08/17/20 01:51 08/19/20 08:17 Gabapentin 100 Mg Capsule PO Not Given TID BRI Nystatin 1 appl 08/16/20 21:00 08/18/20 20:40 Nystatin Powder 15 Gm Bottle TOPICAL 1 appl BID BRI Administration Protocol Ondansetron HCl 4 mg 08/17/20 01:51 Ondansetron Hcl 4 Mg/2 Ml Vial IVPUSH Q8H PRN Nausea and Vomiting Pharmacy Consult 1 each 08/16/20 18:50 Consult Rx Perform Med Rec MISCELLANE ONCE PRN Consult order Sodium Chloride 3 ml 08/17/20 08:00 08/19/20 08:14 0.9 % Sodium Chloride Flush 3 Ml Syringe IVFLUSH 3 ml QSHIFT [facility] Administration Tizanidine HCl 4 mg 08/17/20 01:51 08/18/20 20:47 Tizanidine Hcl 4 Mg Tablet PO 4 mg BEDTIME PRN Administration muscle spasm Labs CBC & Chem 7: 08/19/20 05:26 08/19/20 05:26 Microbiology Microbiology Results: Microbiology 08/16/20 17:34 Urine clean catch - Clean Catch Midstream Urine Culture - Final Assessment and Plan (1) Bilateral pulmonary embolism: Status: Acute (2) Somatic dysfunction of left sacroiliac joint: Status: Acute (3) Lumbar paraspinal muscle spasm: Status: Acute Assessment and Plan: This is a 54-year-old female who presents to the hospital with back as well as SI joint pain who is found to have PE. bilateral PE likely induced by immobility and bed-bound status for the past 1 month due to the back pain no evidence of right heart strain on CT angiogram Discontinue Eliquis Start subcutaneous Lovenox full does echocardiogram showing EF 55-60% with moderate aortic and mitral valves calcifications normal BNP back pain as well as hip pain continue pain management muscle relaxer Small intestine lesion seen on CT in jejunal area pt denies abd pain, diarrhea CT angiogram is showing an area of inflammation thickening of the wall of intestine GI input appreciated, to do endoscopy tomorrow Keep NPO post midnight hold Lovenox for the morning does anxiety continue tizanidine asthma not in exacerbation continue home inhalers DVT prophylaxis Lovenox
[2020-08-19 10:58] VITALS: BP 149/98; PULSE 122; RESP 22; TEMP 36.6; O2SAT 94
[2020-08-19] MEDS: Nystatin Powder 15 GM BOTTLE 1 APPL TOPICAL ×2 (12:04→21:11)
[2020-08-19] MEDS: Lidocaine 4 % Patch ADH..PATCH 2 PATCH TRANSDERMA ×2 (12:05→12:06)
[2020-08-19 15:18] VITALS: BP 136/80; PULSE 118; RESP 19; TEMP 36.8; O2SAT 94
[2020-08-19 19:02] VITALS: BP 151/86; PULSE 122; RESP 18; TEMP 37.6; O2SAT 91
[2020-08-19] MEDS: TiZANidine HCL 4 MG TABLET PO (21:14)
[2020-08-19 23:17] VITALS: BP 125/64; PULSE 109; RESP 18; TEMP 36.3; O2SAT 94
[2020-08-20] VITALS (13 sets, daily range): BP systolic 119–142; BP diastolic 79–96; PULSE 95–120; RESP 16–20; TEMP 35.7–36.9; O2SAT 92–98
[2020-08-20 06:43] LABS: Hematocrit 36.1 % (37-47); Hemoglobin 11.8 g/dl (12.0-16.0); Mean Corpuscular HGB Conc 32.7 g/dl (31.0-35.0); Mean Corpuscular Hemoglobin 28.9 pg (27.0-33.0); Mean Corpuscular Volume 88.3 fL (80-98); Mean Platelet Volume 10.6 fL (9.4-12.3); Platelet Count 209 X10*3/uL (160-400); Red Blood Count 4.09 X10*6/uL (4.20-5.50); White Blood Count 9.4 X10*3/uL (4.8-10.8)
[2020-08-20 07:27] LABS: Anion Gap 16 (12-20); Blood Urea Nitrogen 11 mg/dL (9-16); Calcium 8.8 mg/dL (8.4-10.2); Carbon Dioxide 28 mmol/L (22-29); Chloride 101 mmol/L (96-108); Creatinine Clr Calc Pharmacy 129.5; Estimated Glomerular Filt Rate > 60; Glucose Random 157 mg/dL (60-115); Potassium 3.9 mmol/L (3.3-5.1); Sodium 141 mmol/L (135-145)
[2020-08-20] MEDS: Cyclobenzaprine HCl 10 MG TABLET PO ×2 (08:33→18:20)
[2020-08-20] MEDS: Lidocaine 4 % Patch ADH..PATCH 2 PATCH TRANSDERMA (08:34)
[2020-08-20] MEDS: 0.9 % Sodium Chloride Flush 3 ML SYRINGE IVFLUSH ×2 (08:40→20:39)
--- NOTE | 2020-08-20 09:55 | P.CONAN_ITS ---
[facility] Active Problems Active Problems: All Active Problems (Updated 08/18/20 @ 14:21 by Cuba Prieto MD) Mural thickening of small intestine (Acute) Bilateral pulmonary embolism (Acute) UTI (urinary tract infection) (Acute) Somatic dysfunction of left sacroiliac joint (Acute) Lumbar paraspinal muscle spasm (Acute) Past Medical History Medical History Anxiety Asthma Carpal tunnel syndrome Hypertension Osteoarthritis of both knees Family History Family History Father Lung cancer Mother No problems noted. Surgical History Surgical History History of Social History Social History Household Members: None Household Members Other:: PET DOG Housing: Apartment Do you presently have visiting nurse or other home services: No Smoked in Last 30 Days: No Second Hand Smoke Exposure: No Use of substances other than those prescribed or required for medical reasons: No Currently Displaying Signs/Symptoms of Drug Intoxication Withdrawal: No Have you been hit, kicked, punched, or otherwise hurt by someone within the past year? If so, by whom?: No Do you feel safe in your current relationship?: No Current Relationship Is there a partner from a previous relationship who is making you feel unsafe now?: No Are you made to feel afraid or neglected: No Spiritual Healthcare Practices: no Roman Catholic Healthcare Practices: no Cultural Healthcare Practices: no Advance Directives: No Advance Directives Information Provided: Yes Do you have thoughts of harming others: None Do you have a plan to hurt others: No Plan Recently lost weight without trying: No Eating poorly because of decreased appetite: Yes Nutrition Risks: No Nutritional Risk Patient : No : No Poor oral hygiene: No service: No Current occupational status: employed Meds Allergies Allergy/AdvReac Type Severity Reaction Status Date / Time loratadine [From CLARITIN] AdvReac Unknown LOOSES HAIR Verified 08/16/20 15:49 BP pills AdvReac Unknown muscle Uncoded 06/10/20 07:58 cramps/ sobia horses Active Medications: Current Medications Generic Name Dose Route Start Last Admin Trade Name Freq PRN Reason Stop Dose Admin Acetaminophen 650 mg 08/17/20 01:51 Acetaminophen 325 Mg Tablet PO Q6H PRN Pain, Mild (Pain Scale 1-3) Hydrocodone Bitart/Acetaminophen 2 tab 08/16/20 23:48 08/18/20 08:36 Hydrocodone Bit/Acetam 5/325 Tablet PO 2 tab Q6H PRN Administration Pain, Mild (Pain Scale 1-3) Albuterol Sulfate 2.5 mg 08/17/20 01:51 Albuterol Sulfate (0.083%) 2.5 Mg/3 Ml Vial.Neb INHALE RQID PRN wheezing Albuterol Sulfate 2 puff 08/17/20 01:51 Albuterol Sulfate 90 Mcg 8 Gm Inhaler INHALE RQ4H PRN Dyspnea Cyclobenzaprine HCl 10 mg 08/19/20 11:00 08/20/20 08:33 Cyclobenzaprine Hcl 10 Mg Tablet PO 10 mg BID@0800,1800 BRI Administration Docusate Sodium 100 mg 08/17/20 01:51 08/18/20 09:00 Docusate Sodium 100 Mg Capsule PO 100 mg DAILY PRN Administration Constipation Enoxaparin Sodium 150 mg 08/18/20 21:00 08/19/20 21:10 Enoxaparin Sodium 150 Mg/Ml Syringe SUBCUT 150 mg Q12H BRI Administration Fluticasone/Vilanterol 1 puff 08/17/20 08:00 08/19/20 07:30 Fluticasone/Vilanterol 200/25 Blst.W.Dev INHALE Not Given RDAILY BRI Gabapentin 100 mg 08/17/20 01:51 08/20/20 09:49 Gabapentin 100 Mg Capsule PO Not Given TID [facility] Lidocaine 2 patch 08/19/20 11:00 08/20/20 08:34 Lidocaine 4 % Patch Adh..Patch TRANSDERMA 2 patch DAILY [facility] Administration Protocol Nystatin 1 appl 08/16/20 21:00 08/20/20 09:50 Nystatin Powder 15 Gm Bottle TOPICAL Not Given BID [facility] Protocol Ondansetron HCl 4 mg 08/17/20 01:51 Ondansetron Hcl 4 Mg/2 Ml Vial IVPUSH Q8H PRN Nausea and Vomiting Pharmacy Consult 1 each 08/16/20 18:50 Consult Rx Perform Med Rec MISCELLANE ONCE PRN Consult order Sodium Chloride 3 ml 08/17/20 08:00 08/20/20 08:40 0.9 % Sodium Chloride Flush 3 Ml Syringe IVFLUSH 3 ml QSHIFT BRI Administration Tizanidine HCl 4 mg 08/17/20 01:51 08/19/20 21:14 Tizanidine Hcl 4 Mg Tablet PO 4 mg BEDTIME PRN Administration muscle spasm Home Medications Medication Instructions Recorded Confirmed Last Taken Type Vitamin D3 1 tab PO DAILY 08/16/20 08/16/20 08/15/20 History albuterol sulfate 2 puff INHALATION Q4-6H PRN 08/16/20 08/16/20 Unknown History albuterol sulfate 3 ml INHALATION QID PRN 08/16/20 08/16/20 Unknown History cyclobenzaprine 1 tab PO TID PRN 08/16/20 08/16/20 08/15/20 History gabapentin 1 cap PO TID 08/16/20 08/16/20 08/15/20 History tizanidine 1 tab PO BEDTIME PRN 08/16/20 08/16/20 08/15/20 History Exam Exam Date and Time: August 20, 2020 0955 Height,Weight and Vital Signs: Height 5 ft 3 in Weight 346 lb Last Vital Signs Temp 98.5 F 08/20/20 07:19 Pulse 107 H 08/20/20 07:19 Resp 20 08/20/20 07:19 BP 137/82 08/20/20 07:19 Pulse Ox 96 08/20/20 07:19 Pertinent Lab Results Pertinent Lab Results: Laboratory Tests 08/16/20 08/16/20 08/16/20 17:31 17:31 17:31 WBC 14.7 H RBC 5.25 Hgb 15.0 Hct 46.2 MCV 88.0 MCH 28.6 MCHC 32.5 RDW 14.6 Plt Count 280 MPV 10.4 Immature Gran % (Auto) 0.7 H Neut % (Auto) 67.7 Lymph % (Auto) 19.1 L [place] % (Auto) 10.5 Eos % (Auto) 1.7 Baso % (Auto) 0.3 Lymph # (Auto) 2.8 [place] # (Auto) 1.6 H Eos # (Auto) 0.3 Baso # (Auto) 0.0 Abs Immat Gran (auto) 0.10 H Absolute Neuts (auto) 10.0 H Absolute Nucleated RBC 0.000 Nucleated RBC % (auto) 0.0 Smear Tech's Comments VERIFIED D-Dimer Sodium 137 Potassium 4.7 Chloride 98 Carbon Dioxide 24 Anion Gap 20 BUN 21 H Creatinine 1.00 Estim Creat Clear Calc 94.5 Estimated GFR 58 Random Glucose 155 H Calcium 10.1 Magnesium 2.2 Urine Color YELLOW Urine Appearance HAZY Urine pH 5.5 Ur Specific Carlotta >= 1.030 H Urine Protein TRACE Urine Glucose (UA) NEG Urine Ketones 5 Urine Blood NEG Urine Nitrite NEG Ur Leukocyte Esterase TRACE H Urine RBC 0 Urine WBC 1-4 Ur Squamous Epith Cells 3+ Amorphous Sediment 2+ Urine Bacteria 3+ Hyaline Casts 1-4 Urine Mucus TRACE COVID-19 (JESSICA) COVID-19 [employer] 08/16/20 08/16/20 08/18/20 19:56 21:19 05:20 WBC 8.4 RBC 4.36 Hgb 12.4 Hct 38.9 MCV 89.2 MCH 28.4 MCHC 31.9 RDW 15.0 Plt Count 210 MPV 10.6 Immature Gran % (Auto) 0.7 H Neut % (Auto) 60.0 Lymph % (Auto) 27.3 [place] % (Auto) 9.3 Eos % (Auto) 2.5 Baso % (Auto) 0.2 Lymph # (Auto) 2.3 [place] # (Auto) 0.8 Eos # (Auto) 0.2 Baso # (Auto) 0.0 Abs Immat Gran (auto) 0.06 H Absolute Neuts (auto) 5.0 Absolute Nucleated RBC 0.000 Nucleated RBC % (auto) 0.0 Smear Tech's Comments D-Dimer 3294 Sodium Potassium Chloride Carbon Dioxide Anion Gap BUN Creatinine Estim Creat Clear Calc Estimated GFR Random Glucose Calcium Magnesium Urine Color Urine Appearance Urine pH Ur Specific Carlotta Urine Protein Urine Glucose (UA) Urine Ketones Urine Blood Urine Nitrite Ur Leukocyte Esterase Urine RBC Urine WBC Ur Squamous Epith Cells Amorphous Sediment Urine Bacteria Hyaline Casts Urine Mucus COVID-19 (JESSICA) Negative COVID-19 Clin Com See Note 08/18/20 08/19/20 08/19/20 05:20 05:26 05:26 WBC 10.9 H RBC 4.27 Hgb 12.2 Hct 37.7 MCV 88.3 MCH 28.6 MCHC 32.4 RDW 14.9 Plt Count 229 MPV 10.5 Immature Gran % (Auto) Neut % (Auto) Lymph % (Auto) [place] % (Auto) Eos % (Auto) Baso % (Auto) Lymph # (Auto) [place] # (Auto) Eos # (Auto) Baso # (Auto) Abs Immat Gran (auto) Absolute Neuts (auto) Absolute Nucleated RBC 0.000 Nucleated RBC % (auto) 0.0 Smear Tech's Comments D-Dimer Sodium 140 140 Potassium 4.5 4.2 Chloride 103 100 Carbon Dioxide 28 29 Anion Gap 14 15 BUN 20 H 16 Creatinine 0.77 0.77 Estim Creat Clear Calc 122.7 122.7 Estimated GFR > 60 > 60 Random Glucose 158 H 161 H Calcium 9.3 D 9.4 Magnesium Urine Color Urine Appearance Urine pH Ur Specific Carlotta Urine Protein Urine Glucose (UA) Urine Ketones Urine Blood Urine Nitrite Ur Leukocyte Esterase Urine RBC Urine WBC Ur Squamous Epith Cells Amorphous Sediment Urine Bacteria Hyaline Casts Urine Mucus COVID-19 (JESSICA) COVID-19 Clin Com 08/20/20 08/20/20 05:21 05:21 WBC 9.4 RBC 4.09 L Hgb 11.8 L Hct 36.1 L MCV 88.3 MCH 28.9 MCHC 32.7 RDW 15.0 Plt Count 209 MPV 10.6 Immature Gran % (Auto) Neut % (Auto) Lymph % (Auto) [place] % (Auto) Eos % (Auto) Baso % (Auto) Lymph # (Auto) [place] # (Auto) Eos # (Auto) Baso # (Auto) Abs Immat Gran (auto) Absolute Neuts (auto) Absolute Nucleated RBC 0.000 Nucleated RBC % (auto) 0.0 Smear Tech's Comments D-Dimer Sodium 141 Potassium 3.9 Chloride 101 Carbon Dioxide 28 Anion Gap 16 BUN 11 Creatinine 0.73 Estim Creat Clear Calc 129.5 Estimated GFR > 60 Random Glucose 157 H Calcium 8.8 D Magnesium Urine Color Urine Appearance Urine pH Ur Specific Carlotta Urine Protein Urine Glucose (UA) Urine Ketones Urine Blood Urine Nitrite Ur Leukocyte Esterase Urine RBC Urine WBC Ur Squamous Epith Cells Amorphous Sediment Urine Bacteria Hyaline Casts Urine Mucus COVID-19 (JESSICA) COVID-19 Clin Com Airway Mallampati Class: II TM Dist: >3cm Neck ROM: Full Loose/Missing/Broken Teeth: No Heart: ST Assessment and Plan Assessment Anesthesia Assessment: Anesthesia Plan Discussed and Chart Reviewed Final Anesthetic Review NPO: Yes ASA Class: III Final Preanesthetic Review: No Changes in Pt Med Stat, Meds/Allgs Chart Reviewed, Consent Obtained/Reviewed and Anes Risks/Benef Reviewed Patient Risk: High Procedure Risk: Low Anesthetic Plan Anesthetic Plan: GA Disposition: Standard PACU
--- NOTE | 2020-08-20 10:33 | MHC.SHP ---
Pre-Procedural Eval Section A The patient is an INPATIENT: Yes The History & Physical has been completed within 30 days and I have reviewed it.: Yes Section B Chief Complaint: b/l pe Allergies: Allergies Allergy/AdvReac Type Severity Reaction Status Date / Time loratadine [From CLARITIN] AdvReac Unknown LOOSES HAIR Verified 08/16/20 15:49 BP pills AdvReac Unknown muscle Uncoded 06/10/20 07:58 cramps/ sobia horses Plan Diagnosis/Plan: Unchanged I have reviewed the history and physical and performed a pertinent physical examination on my patient. No changes have occurred unless specified. push enteroscopy
--- NOTE | 2020-08-20 10:33 | PM.OP ---
Brief Operative Note Date of Service: 08/20/20 Pre-op diagnosis: abn CT imaging of small bowel Post-op diagnosis: same Procedure: see op note Surgeon: Cuba Prieto MD Anesthesia: MAC Was an Client Relations Representative used for this Procedure?: No Estimated blood loss (mL): 0 Condition: stable Disposition: PACU
--- NOTE | 2020-08-20 10:33 | W.PM.OPN ---
Operative Note Operative Note Date of Service: 08/20/20 Narrative: Procedure Description: Push enteroscopy FLEXIBLE TRANSORAL Push enteroscopy Push enteroscopy Consent: Indications for the procedure and potential complications of bleeding, perforation, reaction to medications and missed diagnosis were discussed with the patient and informed consent was obtained. Instrument: Olympus GIF H 190 J colonoscope with distal attachment Monitoring: Vital signs and clinical assessment, continuous EKG monitoring, Pulse oximetry, Carbon Dioxide monitoring and blood pressure monitoring were done throughout the procedure. Procedure: The patient was placed in the left lateral decubitis position and pre-procedure medications were administered and a bite block was placed. The endoscope was inserted into the mouth and advanced under direct vision to the proximal jejunum . A careful inspection was made as the upper endoscope was withdrawn including a retroflexed examination of the proximal stomach; Findings and interventions are described below. Findings: Larynx:normal Esophagus: GE junction at 40 cm, diaphragm hiatus at 42 cm, with 2 cm sliding hiatal hernia noted. LA grade erosive esophagitis noted. Stomach: Patchy gastric erythema with atrophy and scarring. Biopsies were obtained. Grade 2 flap valve on retroflexed examination of the cardia. Duodenum: Normal bulb and descending duodenum, bx taken, few chylous cysts noted (benign) Jejunum: normal, bx taken, distal most part that was reached was marked with La Ink tattoo Intervention: Biopsies as noted above, La Ink tattoo Impression/Findings: atrophic gastritis esophagitis PLAN: can resume anti coagulation tonight outpatient capsule endoscopy, do sham capsule test first. If abnormality seen on capsule then will do balloon enteroscopy. Would recommend low dose PPI on d/c to prevent risk of esophageal or gastric ulceration and bleeding
[2020-08-20] MEDS: Lactated Ringers 1,000 ML 50 ML IV (10:39)
[2020-08-20] MEDS: Albuterol Sulfate (0.083%) 2.5 MG/3 ML VIAL.NEB INHALE (11:30)
[2020-08-20] MEDS: 0.9 % Sodium Chloride 1,000 ML 50 ML IVCONT (12:42)
--- NOTE | 2020-08-20 15:14 | P.PNIM_ITS ---
Subjective Subjective Date of Service: 08/20/20 Interval History: seen and examined this morning reports improvement in back pain denies shortness of breath, chest pain Review of Systems Review of Systems: Yes all other systems are reviewed and are negative Constitutional Constitutional: Denies chills and Denies fever(s) Cardiovascular Cardiovascular: Denies chest pain Respiratory Respiratory: Denies cough Gastrointestinal Gastrointestinal: Denies abdominal pain Physical Exam Vital Signs: Vital Signs: Last Vital Signs Temp 96.3 F L 08/20/20 14:00 Pulse 97 08/20/20 14:00 Resp 18 08/20/20 14:00 BP 135/83 08/20/20 14:00 Pulse Ox 98 08/20/20 14:00 Body Mass Index 61.2 Const: General: comfortable and no acute distress Nutritional Appearance: obese HENMT: Head: Yes normocephalic and Yes atraumatic Eyes: Sclerae: sclerae normal Chest: Chest palpation & inspection: normal inspection of the chest Resp: Effort & Inspection: normal respiratory effort and no respiratory distress Auscultation: clear to auscultation bilaterally Cardio: Rate: regular rate Rhythm: regular rhythm GI: Palpation (GI): Soft to palpation and nontender Neuro: Cranial nerves: Yes CN's II-XII intact bilaterally and Yes Bilaterally intact EOM present Objective Data Current Medications Generic Name Dose Route Start Last Admin Trade Name Freq PRN Reason Stop Dose Admin Acetaminophen 650 mg 08/17/20 01:51 Acetaminophen 325 Mg Tablet PO Q6H PRN Pain, Mild (Pain Scale 1-3) Hydrocodone Bitart/Acetaminophen 2 tab 08/16/20 23:48 08/18/20 08:36 Hydrocodone Bit/Acetam 5/325 Tablet PO 2 tab Q6H PRN Administration Pain, Mild (Pain Scale 1-3) Albuterol Sulfate 2.5 mg 08/17/20 01:51 08/20/20 11:30 Albuterol Sulfate (0.083%) 2.5 Mg/3 Ml Vial.Neb INHALE 2.5 mg RQID PRN Administration wheezing Albuterol Sulfate 2 puff 08/17/20 01:51 Albuterol Sulfate 90 Mcg 8 Gm Inhaler INHALE RQ4H PRN Dyspnea Albuterol Sulfate 2.5 mg 08/20/20 11:21 Albuterol Sulfate (0.083%) 2.5 Mg/3 Ml Vial.Neb INHALE ONCE PRN Wheezing Apixaban 10 mg 08/20/20 21:00 Apixaban 5 Mg Tablet PO BID COUNT INCLUDES THE [facility] Cyclobenzaprine HCl 10 mg 08/19/20 11:00 08/20/20 08:33 Cyclobenzaprine Hcl 10 Mg Tablet PO 10 mg BID@0800,1800 COUNT INCLUDES THE [facility] Administration Docusate Sodium 100 mg 08/17/20 01:51 08/18/20 09:00 Docusate Sodium 100 Mg Capsule PO 100 mg DAILY PRN Administration Constipation Fluticasone/Vilanterol 1 puff 08/17/20 08:00 08/20/20 11:34 Fluticasone/Vilanterol 200/25 Blst.W.Dev INHALE Not Given RDAILY COUNT INCLUDES THE [facility] Gabapentin 100 mg 08/17/20 01:51 08/20/20 09:49 Gabapentin 100 Mg Capsule PO Not Given TID COUNT INCLUDES THE [facility] Lactated Ringer's 1,000 mls @ 50 mls/hr 08/20/20 10:30 08/20/20 11:52 Lr IV Infused .Q20H COUNT INCLUDES THE [facility] Infusion Sodium Chloride 1,000 mls @ 50 mls/hr 08/20/20 10:30 08/20/20 12:42 Ns IVCONT 50 mls/hr .Q20H COUNT INCLUDES THE [facility] Administration Lidocaine 2 patch 08/19/20 11:00 08/20/20 08:34 Lidocaine 4 % Patch Adh..Patch TRANSDERMA 2 patch DAILY COUNT INCLUDES THE [facility] Administration Protocol Nystatin 1 appl 08/16/20 21:00 08/20/20 09:50 Nystatin Powder 15 Gm Bottle TOPICAL Not Given BID COUNT INCLUDES THE [facility] Protocol Omeprazole 20 mg 08/21/20 06:30 Omeprazole 20 Mg Capsule. PO DAILY@0630 COUNT INCLUDES THE [facility] Ondansetron HCl 4 mg 08/17/20 01:51 Ondansetron Hcl 4 Mg/2 Ml Vial IVPUSH Q8H PRN Nausea and Vomiting Ondansetron HCl 4 mg 08/20/20 11:21 Ondansetron Hcl 4 Mg/2 Ml Vial IVPUSH ONCE PRN Nausea and Vomiting Pharmacy Consult 1 each 08/16/20 18:50 Consult Rx Perform Med Rec MISCELLANE ONCE PRN Consult order Sodium Chloride 3 ml 08/17/20 08:00 08/20/20 08:40 0.9 % Sodium Chloride Flush 3 Ml Syringe IVFLUSH 3 ml QSHIFT BRI Administration Tizanidine HCl 4 mg 08/17/20 01:51 08/19/20 21:14 Tizanidine Hcl 4 Mg Tablet PO 4 mg BEDTIME PRN Administration muscle spasm Labs CBC & Chem 7: 08/20/20 05:21 08/20/20 05:21 Microbiology Microbiology Results: Microbiology 08/16/20 17:34 Urine clean catch - Clean Catch Midstream Urine Culture - Final Assessment and Plan (1) Bilateral pulmonary embolism: Status: Acute (2) Mural thickening of small intestine: Status: Acute (3) Somatic dysfunction of left sacroiliac joint: Status: Acute (4) Lumbar paraspinal muscle spasm: Status: Acute Assessment and Plan: This is a 54-year-old female with a history of morbid obesity, asthma, hypertension, osteoarthritis who presents to the hospital with back as well as SI joint pain who is found to have PE. bilateral PE likely induced by immobility and bed-bound status for the past 1 month due to the back pain no evidence of right heart strain on CT angiogram echocardiogram showing EF 55-60% with moderate aortic and mitral valves calcifications -resume Eliquis this evening 10mg BID x 7 days, then 5mg BID -wean o2 as tolerated back pain as well as hip pain continue pain management with gabapentin, flexeril, lidoderm patch muscle relaxer -PT has rec STR Small intestine lesion seen on CT in jejunal area pt denies abd pain, diarrhea CT angiogram is showing an area of inflammation thickening of the wall of intestine -s/p enteroscopy showing esophagitis, rec outpatient capsule study, low dose PPI asthma not in exacerbation continue home inhalers Morbid obesity BMI 61.3 likely contributing to back pain DVT prophylaxis - eliquis attending: dr. penn dispo: to [facility] likely tomorrow
[2020-08-20] MEDS: Apixaban 5 MG TABLET 10 MG PO (20:29)
[2020-08-20] MEDS: HYDROcodone Bit/Acetam 5/325 TABLET 2 TAB PO (20:32)
[2020-08-20] MEDS: Nystatin Powder 15 GM BOTTLE 1 APPL TOPICAL (20:34)
[2020-08-21] VITALS: BP 128/67; PULSE 100; RESP 18; TEMP 36.6; O2SAT 91
[2020-08-21 04:00] VITALS: BP 129/69; PULSE 105; RESP 20; TEMP 36.8; O2SAT 92
[2020-08-21] MEDS: Omeprazole 20 MG CAPSULE.DR PO (05:30)
[2020-08-21 06:02] LABS: Hematocrit 36.3 % (37-47); Hemoglobin 11.5 g/dl (12.0-16.0); Mean Corpuscular HGB Conc 31.7 g/dl (31.0-35.0); Mean Corpuscular Hemoglobin 28.1 pg (27.0-33.0); Mean Corpuscular Volume 88.8 fL (80-98); Mean Platelet Volume 10.3 fL (9.4-12.3); Platelet Count 226 X10*3/uL (160-400); Red Blood Count 4.09 X10*6/uL (4.20-5.50); Red Cell Distribution Width 15.1 % (11.0-16.0); White Blood Count 7.6 X10*3/uL (4.8-10.8)
[2020-08-21 07:03] VITALS: BP 131/70; PULSE 99; RESP 17; TEMP 36.6; O2SAT 94
[2020-08-21] MEDS: Lidocaine 4 % Patch ADH..PATCH 2 PATCH TRANSDERMA (07:48)
[2020-08-21] MEDS: 0.9 % Sodium Chloride Flush 3 ML SYRINGE IVFLUSH (07:52)
[2020-08-21] MEDS: Cyclobenzaprine HCl 10 MG TABLET PO (07:53)
[2020-08-21] MEDS: Apixaban 5 MG TABLET 10 MG PO (07:53)
[2020-08-21] MEDS: Nystatin Powder 15 GM BOTTLE 1 APPL TOPICAL (07:54)
[2020-08-21 09:28] VITALS: BP 131/70; PULSE 99; O2SAT 94
--- NOTE | 2020-08-21 10:09 | MHC.CM.PN ---
CM met with Patient to discuss dc planning. Patient's first choice SNF for STR is [facility]. CM has asked HH-N to go for auth and CM will follow.
--- NOTE | 2020-08-21 10:20 | HO.POSTANES ---
Post Anesthesia Evaluation Post Anesthesia Evaluation Vital Signs: Vital Signs Temp Pulse Resp BP Pulse Ox 08/21/20 09:28 99 131/70 94 08/21/20 07:03 98 F 99 17 131/70 94 08/21/20 04:00 98.2 F 105 H 20 129/69 92 08/21/20 00:00 97.9 F 100 18 128/67 91 L Anesthesia: General Mental Status: Awake Pain Control: Satisfactory Nausea/Vomiting: None Hydration: Adequate Anesthesia-Related Issues: No Anes. Related Issues
--- NOTE | 2020-08-21 11:07 | MHC.CM.PN ---
Per Medical, Patient will be medically cleared for dc today to STR/SNF. Patient has been accepted at her first choice SNF- [facility] and she will dc there today at 4PM, via [facility]. Patient is aware of and in agreement with the dc plan.
[2020-08-21 11:11] VITALS: BP 130/87; PULSE 116; RESP 20; TEMP 36.7; O2SAT 94
[2020-08-21 11:17] LABS: COVID-19 Test Negative (Negative)
--- NOTE | 2020-08-21 11:33 | PM.DS ---
DS: Providers Provider Date of Service: 08/21/20 <PARTHA Acuna - Last Filed: 08/21/20 11:55> Date of admission: 08/17/20 00:30 <PARTHA Acuna - Last Filed: 08/21/20 11:55> Primary care physician: Vinod Little [facility]- <PARTHA Acuna - Last Filed: 08/21/20 11:55> Consults: 08/18/20 07:36 Consult to Gastroenterology Routine Consulting Provider: Tanner Sr Reason for consultation: small intestine lesion w risk of malignancy, new PE for your eval. <PARTHA Acuna - Last Filed: 08/21/20 11:55> DS: Diagnosis Discharge Diagnosis (1) Bilateral pulmonary embolism: Status: Acute <PARTHA Acuna - Last Filed: 08/21/20 11:55> (2) Mural thickening of small intestine: Status: Acute <PARTHA Acuna - Last Filed: 08/21/20 11:55> (3) Esophagitis: Status: Acute <PARTHA Acuna - Last Filed: 08/21/20 11:55> (4) Somatic dysfunction of left sacroiliac joint: Status: Acute <PARTHA Acuna - Last Filed: 08/21/20 11:55> (5) Lumbar paraspinal muscle spasm: Status: Acute <PARTHA Acuna - Last Filed: 08/21/20 11:55> DS: Medications Discharge Medications Home Medications: Home Medications Medication Instructions Recorded Confirmed Vitamin D3 1 tab PO DAILY 08/16/20 08/16/20 albuterol sulfate 2 puff INHALATION Q4-6H PRN 08/16/20 08/16/20 albuterol sulfate 3 ml INHALATION QID PRN 08/16/20 08/16/20 cyclobenzaprine 1 tab PO TID PRN 08/16/20 08/16/20 tizanidine 1 tab PO BEDTIME PRN 08/16/20 08/16/20 Previous Rx's Medication Instructions Recorded Symbicort 160 mcg-4.5 2 puff INHALATION BID 30 Days 08/18/20 mcg/actuation HFA aerosol inhaler #10.2 g NS apixaban [Eliquis] 5 mg PO BID 30 Days #60 tab 08/21/20 lidocaine [Lidocaine Pain Relief] 2 patch TRANSDERMAL DAILY 30 Days 08/21/20 ea omeprazole 20 mg PO DAILY@0630 30 Days #30 cap 08/21/20 <PARTHA Acuna - Last Filed: 08/21/20 11:55> DS: Summary Hospital Course Hospital Course: From H&P on day of admission This is a 54-year-old female with past medical history of anxiety, asthma ,morbid obesity, hypertension, osteoarthritis who presents to the hospital with complaints of worsening back pain. Patient reports that she developed chronic SI joint pain about a month ago and has been struggling with that, today she was sitting on a plastic chair, moved her chair slightly, the leg of the chair broke and she fell to the floor with worsening hip pain and therefore decided to come to the hospital. Her pain is mostly on the left side, worse with walking, when walking she feels like her legs give out but she has no weakness numbness or tingling. She also feels muscle spasm. At this time patient denies feeling any headache, change in vision, no shortness of breath, no cough, no sputum production, no abdominal pain nausea or vomiting, no diarrhea constipation, no urinary symptoms including no dysuria, urgency or frequency and no lower extremity edema. Patient reports that due to the pain in her hip she has been mostly bed-bound and very immobile for the past 1 month. Patient reports very minimal movement. On arrival to the ED patient hemodynamically stable with no significant abnormal vitals Labs showed WBC count of 14.7, otherwise unremarkable, UA positive for trace leukocyte Estrace and 1-4 WBC, as well as 3+ squamous epithelia cells. Elevated D-dimer. Due to the elevated D-dimer patient underwent CT angiogram that showed of segmental and subsegmental acute pulmonary emboli, diverticulosis with no acute inflammatory change, long segment of thickened small bowel in the left upper quadrant involving the jejunum, this is uncertain significance. Pulmonary embolism Likely secondary to immobility, being nearly bed-bound for the past 1 month in the setting of back pain. Patient was initially started on anticoagulation with Eliquis. This was transitioned to Lovenox prior to enteroscopy. Following the procedure she was transitioned back to oral Eliquis. She will be discharged with Eliquis, she should take 10 mg twice daily for 6 more days and then 5 mg twice daily moving forward. She should continue anticoagulation for at least 3 months. She is currently not requiring supplemental oxygen. She intermittently becomes tachycardic primarily with exertion. This is likely due to underlying deconditioning and body habitus. She should call to schedule a follow-up appointment with her PCP. CBC should be checked periodically while on anticioagulation. Monitor for signs of bleeding. Back pain Lumbar spine x-ray and hip and pelvis x-ray were both done 08/16 and showed no evidence of fracture or dislocation. Lumbar spine x-ray showed multilevel degenerative changes. She was continued on p.r.n. Zanaflex and Flexeril. Lidoderm patches were added and her back pain has been adequately controlled. She was evaluated by Physical therapy who recommended short-term rehab. Mural thickening of bowel CT scan of the abdomen and pelvis was done while in the emergency department which showed a long segment of thickened small bowel. Patient denied any abdominal pain or diarrhea. She was evaluated by GI. She underwent enteroscopy on 08/21. Biopsies were taken. She was noted to have esophagitis. Low-dose PPI was recommended. She should follow up with GI as outpatient for capsule study. Biopsies from procedure are pending at the time of discharge. H/H has remained stable following procedure. Anticipate less than 30 day stay at SNF. Attending Attestation: Patient seen and examined independently and I was present during leon portion of E/M service. Agree with PARTHA Schilling's history, physical, assessment, and plan. <PARTHA Acuna - Last Filed: 08/21/20 11:55> Time Spent with Patient Time attestation: Total time spent providing and/or coordinating discharge services: <PARTHA Acuna - Last Filed: 08/21/20 11:55> Discharge coordination time: Greater than 30 minutes <PARTHA Acuna - Last Filed: 08/21/20 11:55> Quality: Stroke Does the patient have a stroke diagnosis?: No <PARTHA Acuna - Last Filed: 08/21/20 11:55> Physical Exam Vital Signs: Vital Signs: Last Vital Signs Temp 98.0 F 08/21/20 11:11 Pulse 116 H 08/21/20 11:11 Resp 20 08/21/20 11:11 BP 130/87 08/21/20 11:11 Pulse Ox 94 08/21/20 11:11 Body Mass Index 61.2 <PARTHA Acuna - Last Filed: 08/21/20 11:55> Const: General: comfortable and no acute distress <PARTHA Acuna - Last Filed: 08/21/20 11:55> Nutritional Appearance: obese <PARTHA Acuna - Last Filed: 08/21/20 11:55> HENMT: Head: Yes normocephalic and Yes atraumatic <PARTHA Acuna - Last Filed: 08/21/20 11:55> Eyes: Sclerae: sclerae normal <PARTHA Acuna - Last Filed: 08/21/20 11:55> Chest: Chest palpation & inspection: normal inspection of the chest <PARTHA Acuna - Last Filed: 08/21/20 11:55> Resp: Effort & Inspection: normal respiratory effort and no respiratory distress <PARTHA Acuna - Last Filed: 08/21/20 11:55> Auscultation: clear to auscultation bilaterally <PARTHA Acuna - Last Filed: 08/21/20 11:55> Cardio: Rate: regular rate <PARTHA Acuna - Last Filed: 08/21/20 11:55> Rhythm: regular rhythm <PARTHA Acuna - Last Filed: 08/21/20 11:55> GI: Palpation (GI): Soft to palpation and nontender <PARTHA Acuna - Last Filed: 08/21/20 11:55> Neuro: Cranial nerves: Yes CN's II-XII intact bilaterally and Yes Bilaterally intact EOM present <PARTHA Acuna - Last Filed: 08/21/20 11:55> DS: Data Data Completed and Pending Pending studies at discharge: Pending at discharge 08/20/20 11:04 Surgical [PTH] Routine <PARTHA Acuna - Last Filed: 08/21/20 11:55> Labs on day of discharge: Laboratory Results - last 24 hr 08/21/20 08/21/20 08/21/20 05: 10:00 10:45 WBC 7.6 RBC 4.09 L Hgb 11.5 L Hct 36.3 L MCV 88.8 MCH 28.1 MCHC 31.7 RDW 15.1 Plt Count 226 MPV 10.3 Absolute Nucleated RBC 0.000 Nucleated RBC % (auto) 0.0 COVID-19 (JESSIAC) Cancelled Negative COVID-19 Clin Com Cancelled See Note <PARTHA Acuna - Last Filed: 08/21/20 11:55> Discharge Plan Discharge Patient Disposition: Xfer SNF <PARTHA Acuna - Last Filed: 08/21/20 11:55> Discharge Diagnosis: Bilateral pulmonary embolism Esophagitis Intractable Back pain <PARTHA Acuna - Last Filed: 08/21/20 11:55> Bilateral pulmonary embolism Esophagitis Intractable Back pain <Gómez Barahona MD - Last Filed: 08/21/20 15:04> Referrals: [facility] [Outside] - 1 Week Vinod Little FNP- [Primary Care Provider] - 1 Week Cuba Prieto MD [Physician] - 1 Week <PARTHA Acuna - Last Filed: 08/21/20 11:55> Discharge Medications: New Eliquis 5 mg Tablet 5 mg PO BID 30 Days Qty: 60 RF: 0 omeprazole 20 mg Capsule,Delayed Release(Dr/Ec) 20 mg PO DAILY@0630 30 Days Qty: 30 RF: 0 lidocaine [Lidocaine Pain Relief] 4 % Adhesive Patch,Medicated 2 patch transdermal DAILY 30 Days RF: 0 Continued budesonide-formoterol [Symbicort] 160-4.5 mcg/actuation HFA aerosol inhaler 2 puff inhalation BID 30 Days Qty: 10.2 RF: 2 cyclobenzaprine 10 mg tablet 1 tab PO TID PRN (Reason: muscle spasm) RF: 0 albuterol sulfate 2.5 mg /3 mL (0.083 %) solution for nebulization 3 ml inhalation QID PRN (Reason: wheezing) RF: 0 tizanidine 4 mg tablet 1 tab PO BEDTIME PRN (Reason: muscle spasm) RF: 0 albuterol sulfate 90 mcg/actuation HFA aerosol inhaler 2 puff inhalation Q4-6H PRN (Reason: Dyspnea) RF: 0 Vitamin D3 1 tab PO DAILY RF: 0 Discontinued gabapentin 100 mg capsule 1 cap PO TID RF: 0 <PARTHA Acuna - Last Filed: 08/21/20 11:55> Discharge Orders: Discharge Order (Routine); Ordered 08/21/20 Ordered By: Sabrina Israel <PARTHA Acuna - Last Filed: 08/21/20 11:55> Diet: advance to usual diet <PARTHA Acuna - Last Filed: 08/21/20 11:55> advance to usual diet <Gómez Barahona MD - Last Filed: 08/21/20 15:04> Activity on Discharge: As tolerated <PARTHA Acuna - Last Filed: 08/21/20 11:55> As tolerated <Gómez Barahona MD - Last Filed: 08/21/20 15:04> Stand Alone Forms: Patient Portal Discharge page <PARTHA Acuna - Last Filed: 08/21/20 11:55> Care Plan Goals: see below <PARTHA Acuna - Last Filed: 08/21/20 11:55> Health Concerns: Pulmonary Embolism Back pain Esophagitis Mural thickening of bowel <PARTHA Acuna - Last Filed: 08/21/20 11:55> Plan of Treatment: Pulmonary Embolism - Take 2 tablets (10 mg) wtice daily of Eliquis for 6 more days, then take 1 tablet (5 mg) twice daily. Call to schedule follow up appointment with PCP. Back pain. Can continue taking Flexeril, Zanaflex as needed and using Lidoderm patch as needed. Call to schedule follow-up appointment with PCP Esophagitis. start taking omeprazole as prescribed. Call to schedule follow-up appointment with Dr. Prieto <PARTHA Acuna - Last Filed: 08/21/20 11:55> Assessment: see discharge summary <PARTHA Acuna - Last Filed: 08/21/20 11:55>
[2020-08-21] MEDS: HYDROcodone Bit/Acetam 5/325 TABLET 2 TAB PO (14:10)
[2020-08-21 15:57] VITALS: BP 150/91; PULSE 122; RESP 18; TEMP 36.9; O2SAT 94
== END 2020-08-21 16:18 | disposition skilled nursing facility (03) | DRG 176 ==
LOC: HO.ED 23:57 → HO.EDOVER 08-17 00:46 → HO.ICU 08-17 09:11 → HO.IMC 08-18 11:26
PROVIDERS: Internal Medicine Gastroenterology; Physician Assistant; Physician Assistant Medical; Student in an Organized Health Care Education/Training Program; Admitting Provider Internal Medicine; Emergency Provider Emergency Medicine; PCP Nurse Practitioner Family; Visit Provider Family Medicine
PROC: 0DJ08ZZ Inspection of Upper Intestinal Tract, Via Natural or Artificial Opening Endoscopic (ICD-10-PCS; CPT 43235; principal; 2020-08-20 16:30)
DX: I26.99 Other pulmonary embolism without acute cor pulmonale (principal); Z68.44 Body mass index [BMI] 60.0-69.9, adult; M99.04 Segmental and somatic dysfunction of sacral region; M62.830 Muscle spasm of back; E66.01 Morbid (severe) obesity due to excess calories; K29.40 Chronic atrophic gastritis without bleeding; K44.9 Diaphragmatic hernia without obstruction or gangrene; K20.90 Esophagitis, unspecified without bleeding; K63.9 Disease of intestine, unspecified; R00.0 Tachycardia, unspecified; F41.9 Anxiety disorder, unspecified; J45.909 Unspecified asthma, uncomplicated; Z20.822 Contact with and (suspected) exposure to COVID-19; Z79.01 Long term (current) use of anticoagulants; Z79.899 Other long term (current) drug therapy
CPT/HCPCS: 36415; 71275; 72100; 73502; 74177; 80048; 81001; 81003; 83735; 85025; 85027; 85379; 87086; 87635; 88305; 88342; 93005; 93306; 94640; 97110; 97116; 97162; 99285; J0330; J0696; J1650; J3010; Q9967

== ENCOUNTER 2021-01-04 12:50 | Outpatient (REF) | payer OTHER, SELFPAY | END 2021-01-04 12:51 | disposition home or self-care (01) | LOC: HO.MRI 12:50 | PROVIDERS: Visit Provider Nurse Practitioner Family | DX: Z13.89 Encounter for screening for other disorder (principal) ==

== ENCOUNTER 2023-12-19 12:16 | Outpatient (AMB) | payer OTHER, SELFPAY ==
[2023-12-19 12:23] VITALS: BP 150/80; PULSE 82; O2SAT 97; BMI 64.1
--- NOTE | 2023-12-19 12:23 | MHC.PC.OV ---
Vital Signs 12/19/23 12:23 Height 5 ft 3 in Weight 362 lb BMI 64.1 BP 150/80 H Blood Pressure Location Rt radial Position Sitting Pulse 82 Pulse Source Pulse Oximeter Pulse Oximetry (%) 97 Intake Visit Reasons: PE Intake Note: pt is here for PE Accompanied by: Self / Same As Patient Allergies loratadine [From CLARITIN] Adverse Reaction (Unknown, Verified 12/19/23 12:23) LOOSES HAIR BP pills Adverse Reaction (Unknown, Uncoded 02/17/21 12:23) muscle cramps/ sobia horses Medication List - Last Reconciled 12/19/23 by Vinod Little, TRAFFIC [employer] SYSTEM DISPATCHER- albuterol sulfate 90 mcg/actuation 2 puffs inhalation Q4-6H PRN 30 days albuterol sulfate 2.5 mg (3 mL) inhalation QID PRN 30 days albuterol sulfate 90 mcg/actuation (Ventolin HFA) 1 inh inhalation QID PRN fluoxetine 10 mg PO DAILY 90 days furosemide 20 mg PO DAILY 30 days omeprazole 20 mg PO DAILY@0630 30 days Symbicort 160-4.5 mcg/actuation (budesonide-formoterol) 2 puffs PO BID NS tizanidine 4 mg PO BID PRN tramadol 50 mg PO DAILY PRN 20 days [Vitamin D3 1 tab PO DAILY] Tobacco use date assessed: 12/19/23 Dental Screening Dental Screen Date: 12/19/23 Did you have a dental visit in the last 12 months?: Yes Did you have a dental problem in the last 6 months where you did not have access to dental care?: No Was dental information given to patient?: Patient has dentist HPI PE HPI Details Pt is here for a PE. I have not seen this pt since January of 2021. Will order labs. Due for mammo, will order. Has a bar hostess. Due for colon screen, will order cologuard. Pt is not interested in medical weight loss. Pt reports increased anxiety. She is interested in starting fluoxetine again as this has helped previously. Will send. Denies any SI and HI. Pt is tachycardic today. EKG done in office. Pt's blood pressure is elevated. Will start metoprolol succinate 25mg. Pt knows to stop med and let me know if this med causes asthma exacerbation. Will have pt monitor her blood pressure at home and send readings via portal. Denies chest pain, shortness of breath, headache, dizziness, and blurred vision. HPI Comments History of Present Illness Details Pt is here for a PE. colonoscopy is up to date [facility] Medical History (Updated 12/19/23 @ 13:32 by MYNOR Verma) Lumbar spondylolysis Hypertension Osteoarthritis of both knees Anxiety Carpal tunnel syndrome Asthma Surgical History History of Family History Father Lung cancer Mother Liver cancer Diabetes Social History Household Members: None Household Members Other:: PET DOG Housing: Apartment Do you presently have visiting nurse or other home services: No Alcohol intake: former Patient Tobacco Use Status: Never used Tobacco Second Hand Smoke Exposure: No service: No Current occupational status: employed Cognitive needs: No Hearing needs: No Vision needs: No Questionnaire PHQ-9 Over the last 2 weeks, how often have you been bothered by any of the following problems? 12521 - PHQ-9 Billing: Patient declined-do not bill Source: Developed by Drs. Yunior Toro, Sharon Sesay, Feliciano Siddiqui and colleagues, with an educational nikloay from [employer]. Thrive Questionnaire Date Thrive assessed: 12/19/23 I am a: Patient What is your living situation today?: I have a steady place to live Within the past 12 months, did the food you bought not last and you didn't have the money to get more?: Never true Within the past 12 months, did you worry whether your food would run out before you got money to buy more?: Never true Do you have trouble paying for medicines?: No Do you have trouble getting transportation to medical appointments?: Yes Do you have trouble paying your heating and electricity bill?: No Do you have trouble taking care of your child, family member or friend?: No Do you have trouble with day-to-day activities such as bathing, preparing meals, shopping, managing finances, etc.?: Yes Are you currently unemployed and looking for a job?: No Are you interested in more education?: No Please select the resources that you would like help with: None Currently or been in a relationship where the following occur: I choose not to answer THRIVE Score: 1 AUDIT C Alcohol Use Questionnaire (AUDIT-C) 1. How often do you have a drink containing alcohol?: Never 2. How many drinks containing alcohol do you have on a typical day when you are drinking?: 1 or 2 3. How often do you have six or more drinks on one occasion?: Never Total Score: 0 Score Reviewed/Action Taken: Yes SCOTT-7 AMB Questionnaire SCOTT-7 Date SCOTT - 7 assessed: 12/19/23 Feeling nervous, anxious, or on edge: 2 = More than half the days Not being able to stop or control worryin = Not at all Worrying too much about different things: 0 = Not at all Trouble relaxin = Not at all Being so restless that it is hard to sit still: 0 = Not at all Becoming easily annoyed or irritable: 0 = Not at all Feeling afraid as if something awful might happen: 0 = Not at all Total SCOTT-7 score (0-4 normal; 5-9 mild; 10-14 moderate; 15-21 severe): 2 Source: Developed by Drs. Yunior Toro, Sharon Sesay, Feliciano Siddiqui and colleagues, with an educational nikolay from [employer]. SCOTT-7 Assessment Billing SCOTT-7 Assessment Tool: SCOTT-7 Assessment 75818 Review of Systems Const Denies chills and Denies fever(s) Eyes Denies blurry vision ENT Denies vertigo, Denies dizziness and Denies sore throat Card Denies chest pain at rest, Denies chest pain with activity, Denies diaphoresis, Denies dyspnea and Denies dyspnea on exertion Resp Denies cough, Denies dyspnea, Denies dyspnea on exertion and Denies wheezing GI Denies abdominal pain, Denies melena, Denies hematochezia, Denies constipation, Denies diarrhea and Denies loose stools Denies hematuria Musc Denies numbness and Denies tingling Skin/Breast Denies lesions Neuro Denies vertigo, Denies dizziness, Denies numbness and Denies tingling Psych Reports anxiety, Denies depression, Denies homicidal ideation, Denies suicidal ideation and Denies other (substance abuse) Aller/Immun Denies wheezing Physical exam (Primary Care) Vital Signs: Last Vital Signs Pulse 82 12/19/23 12:23 BP 150/80 H 12/19/23 12:23 Pulse Ox 97 12/19/23 12:23 BMI result Body Mass Index 64.1 Tobacco/Smoking Status: Tobacco use Status Tobacco use date assessed 12/19/23 12/19/23 12:24 Patient Tobacco Use Status Never used Tobacco 12/19/23 12:24 Thrive Assessment: Date of Thrive Assessment Date Thrive assessed 12/19/23 12/19/23 12:24 Currently or been in a relationship where the following occur: I choose not to answer Const Other: using a rolling walker General: cooperative Nutritional Appearance: well nourished and obese morbidly obese Orientation/consciousness: patient oriented x3 HENMT Head: Yes normal to inspection, Yes normocephalic and Yes atraumatic Ears: TM's normal bilaterally, TM normal on the right and TM normal on the left Eyes General: appearance normal, both eyes and all related structures Alignment and Position: alignment normal and position normal Neck Neck: Yes normal visual inspection, Yes no lymphadenopathy and Yes supple Resp Effort & Inspection: normal respiratory effort Auscultation: clear to auscultation bilaterally Cardio Rate: tachycardic Rhythm: regular rhythm Heart sounds: S1 normal heart sound present, S2 normal heart sound present and no murmurs GI Palpation (GI): Soft to palpation and nontender Auscultation: normal bowel sounds Skin Rashes: no rashes Neuro General: patient oriented x3, moves all extremities, no focal motor deficits and deep tendon reflexes 2+ bilaterally Romberg Test: Negative Extrem Right lower extremity: no edema Left lower extremity: no edema Psych Appearance: grossly normal Mental Status: mental status grossly normal Speech and movement: Normal speech and movement present Affect: normal affect Attitude: cooperative Thought process: Normal thought process present Thought content: Normal thought content present Insight: Good insight present (Psych) Judgement: Good judgement present (Psych) Assessment and Plan Assessment & Plan (1) Encounter for routine adult physical exam with abnormal findings: Code(s): Z00.01 - Encounter for general adult medical examination with abnormal findings Plan: Labs ordered (2) Postmenopausal: Code(s): Z78.0 - Asymptomatic menopausal state Plan: Vitamin D ordered (3) Tachycardia: Code(s): R00.0 - Tachycardia, unspecified Plan: EKG done in office, starting metoprolol, pt knows to stop med and let me know if this med causes asthma exacerbation (4) Hypertension: Code(s): I10 - Essential (primary) hypertension Plan: Starting metoprolol, pt knows to stop med and let me know if this med causes asthma exacerbation, send BPs via portal in 4 weeks (5) Anxiety: Code(s): F41.9 - Anxiety disorder, unspecified Plan: fluoxetine sent (been on this medication before, worked well) Plan The patient agreed to the use of a medical support assistant for this encounter. Scribed for [facility] [place] by Jayne Dowd medical support assistant, on 12/19/2023 at 12:40 EST. Orders: Orders MM screening mammo BI Today Z12.31 - Encounter for screening mammogram for malignant neoplasm of breast Complete Blood Count Auto Diff Today Z00.01 - Encounter for general adult medical examination with abnormal findings Comprehensive [place]. Panel Fast Today Z00.01 - Encounter for general adult medical examination with abnormal findings UA CC w/rflx Micro + Cult Today Z00.01 - Encounter for general adult medical examination with abnormal findings Lipid Panel Today Z00.01 - Encounter for general adult medical examination with abnormal findings Vitamin D 25-OH Total Today Z78.0 - Asymptomatic menopausal state AMB EKG-In Office Today R00.0 - Tachycardia, unspecified TSH reflex Free T4 Today Z00.01 - Encounter for general adult medical examination with abnormal findings Referrals Cologuard Test Z12.11 - Encounter for screening for malignant neoplasm of colon, Z12.12 - Encounter for screening for malignant neoplasm of rectum Medications: New fluoxetine 10 mg PO DAILY 90 days 90 caps 0RF metoprolol succinate ER 25 mg PO DAILY 90 tabs 0RF Coding Level of Care Code Est Pt Prev Care 40-64y(45796) Diagnoses Encounter for routine adult physical exam with abnormal findings Z00.01 Postmenopausal Z78.0 Tachycardia R00.0 Hypertension I10 Anxiety F41.9 Additional Codes SCOTT-7 Assessment Billing - SCOTT-7 Assessment Tool: SCOTT-7 Assessment [id number] ([id number])
== END 2023-12-19 15:35 | disposition home or self-care (01) ==
PROVIDERS: PCP Nurse Practitioner Family; Visit Provider Nurse Practitioner Family
DX: Z00.01 Encounter for general adult medical examination with abnormal findings (principal); Z78.0 Asymptomatic menopausal state; R00.0 Tachycardia, unspecified; I10 Essential (primary) hypertension; F41.9 Anxiety disorder, unspecified

== ENCOUNTER → 2023-12-19 12:16 | Outpatient (BNVA) | payer OTHER, SELFPAY | PROVIDERS: PCP Nurse Practitioner Family; Visit Provider Nurse Practitioner Family | DX: Z00.01 Encounter for general adult medical examination with abnormal findings (principal); R00.0 Tachycardia, unspecified; I10 Essential (primary) hypertension; F41.9 Anxiety disorder, unspecified; Z78.0 Asymptomatic menopausal state | CPT/HCPCS: 96127 ==

== ENCOUNTER 2024-09-23 10:37 | Outpatient (REF) | payer OTHER, SELFPAY ==
[2024-09-23 13:13] LABS: MANUAL DIFF FLAG NO
[2024-09-23 13:25] LABS: Basophils Absolute Auto 0.1 X10*3/uL (0.0-0.2); Basophils Percent Auto 0.5 % (0-2); Eosinophils Absolute Auto 0.3 X10*3/uL (0.0-0.4); Eosinophils Percent Auto 2.3 % (0-4); Hemoglobin 13.6 g/dl (12.0-16.0); Imm Gran Abs Auto 0.05 X10*3/uL (0.00-0.03); Imm Gran Pct Auto 0.4 % (0.0-0.4); Lymphocytes Percent Auto 22.4 % (20-40); Mean Corpuscular HGB Conc 32.4 g/dl (31.0-35.0); Mean Corpuscular Hemoglobin 28.9 pg (27.0-33.0); Mean Corpuscular Volume 89.4 fL (80.0-98.0); Mean Platelet Volume 10.4 fL (9.4-12.3); Monocytes Absolute Auto 0.8 X10*3/uL (0.1-1.2); Monocytes Percent Auto 5.8 % (2-11); Neutrophils Absolute Auto 9.2 x10*3/uL (2.0-8.3); Neutrophils Percent Auto 68.6 % (45-73); Platelet Count 354 X10*3/uL (160-400); Red Cell Distribution Width 13.6 % (11.0-16.0); White Blood Count 13.3 X10*3/uL (4.8-10.8)
[2024-09-23 13:56] LABS: Alanine Aminotransferase 19 U/L (0-31); Albumin Level 4.4 g/dL (3.5-5.0); Alkaline Phosphatase 135 U/L (39-117); Anion Gap 18 (12-20); Aspartate Amino Transferase 20 U/L (5-31); Bilirubin Total 0.9 mg/dL (0.0-1.0); Blood Urea Nitrogen 11 mg/dL (9-16); Calcium 9.3 mg/dL (8.4-10.2); Carbon Dioxide 26 mmol/L (22-29); Chloride 98 mmol/L (96-108); Cholesterol 218 mg/dL (<200); Estimated Glomerular Filt Rate > 60; Glucose Fasting 315 mg/dL (60-99); HDL Cholesterol 43 mg/dL (>40); LDL Cholesterol Calculated 133 mg/dL (<100); Sodium 138 mmol/L (135-145); Total Protein 7.5 g/dL (6.5-8.0); Triglycerides 213 mg/dL (<150)
[2024-09-23 14:27] LABS: Vitamin D 25-OH Total 36.3 ng/mL (>30)
== END 2024-09-23 10:38 | disposition home or self-care (01) ==
LOC: HO.HMGCLDS 10:37
PROVIDERS: PCP Nurse Practitioner Family; Visit Provider Nurse Practitioner Family
DX: Z00.01 Encounter for general adult medical examination with abnormal findings (principal); Z78.0 Asymptomatic menopausal state
CPT/HCPCS: 36415; 80053; 80061; 82306; 84443; 85025

== ENCOUNTER 2024-11-11 06:38 | Outpatient (AMB) | payer OTHER, SELFPAY ==
--- NOTE | 2024-11-11 07:28 | A.OFFPC_ITS ---
Intake Visit Reasons: Discuss DM/needs PA for glucose testing QID Allergies metformin Allergy (Intermediate, Verified 11/11/24 07:28) Nausea loratadine (From CLARITIN) Adverse Reaction (Unknown, Verified 12/19/23 12:23) LOOSES HAIR BP pills Adverse Reaction (Unknown, Uncoded 02/17/21 12:23) muscle cramps/ sobia horses Medication List - Last Reconciled 11/11/24 by Vinod Little, [facility]- albuterol sulfate 90 mcg/actuation 2 puffs inhalation Q4-6H PRN 30 days albuterol sulfate 2.5 mg (3 mL) inhalation QID PRN 30 days amlodipine 2.5 mg PO DAILY blood sugar diagnostic ([employer] Verio test strips) test blood sugar twice a day blood-glucose meter ([employer] Verio Flex Meter) Test blood sugar once a day dapagliflozin propanediol 10 mg PO DAILY fluoxetine 10 mg PO DAILY 90 days furosemide 20 mg PO DAILY 30 days lancets ([employer] Delica Plus Lancet) Test blood sugar twice a day metoprolol succinate ER 25 mg PO DAILY 90 days omeprazole 20 mg PO DAILY@0630 30 days Symbicort 160-4.5 mcg/actuation (budesonide-formoterol) 2 puffs PO BID NS tizanidine 4 mg PO BID PRN tramadol 50 mg PO DAILY PRN 20 days [Vitamin D3 1 tab PO DAILY] Tobacco use date assessed: 12/19/23 Dental Screening Dental Screen Date: 12/19/23 HPI Discuss DM/needs PA for glucose testing QID HPI Details History of Present Illness The patient is a 59-year-old female presenting for a telehealth visit primarily for diabetes management. She reports her blood glucose levels range from 103 mg/dL to 230 mg/dL, with fluctuations largely influenced by dietary habits. She is currently on the highest dose of Farxiga, 10 mg, and has expressed a prefe rence to avoid injectable medications. The patient has been advised on the signs and symptoms of hypoglycemia and how to manage them effectively. A statin has been added to her regimen to address hyperlipidemia. Additionally, glipizide has been prescribed to aid in better glycemic control. Preventative care measures include scheduling an eye examination, as she is due for one. The importance of maintaining tight glucose control has been emphasized, and she is encouraged to continue monitoring her blood glucose levels closely. Review of Systems - Endocrine: Reports fluctuating blood g lucose levels. - Neurological: Denies neuropathy. - Cardiovascular: Denies chest pain. Plan The management plan for the patient's diabetes includes continuing the current dose of Farxiga and introducing glipizide to improve glycemic control. The patient has been educated on recognizing and managing hypoglycemia, and a statin has been added to address hyperlipidemia. Preventative care includes scheduling an eye examination, and the patient is advised to maintain tight glucose control through regular monitoring. Follow-up will be conducted via telehealth in the near future to assess the effectiveness of the current management plan and make any necessary adjustments. Discussion Notes I discussed with the patient the importance of managing her diabetes through medication and lifestyle changes, emphasizing the role of diet in controlling blood glucose levels. I recommended adding glipizide to her regimen and explained the potential benefits of a GLP-1 agonist, although she is currently n ot interested in injectables. We also discussed the addition of a statin for hyperlipidemia and the need for an eye examination as part of her preventative care. I reinforced the importance of tight glucose control and scheduled a follow-up telehealth visit to monitor her progress. Patient Instructions - Continue taking Farxiga as prescribed. - Start taking glipizide as directed. - Be aware of hypoglycemia symptoms and know how to manage them. - Schedule and attend an eye exam. - Monitor blood glucose levels regularly and maintain tight control. - Follow up with a telehealth visit as andrew cherry. FORMERLY [facility], [facility] Medical History Lumbar spondylolysis Hypertension Osteoarthritis of both knees Anxiety Carpal tunnel syndrome Asthma Surgical History History of Family History Father Lung cancer Mother Liver cancer Diabetes Maternal Grandmother Diabetes Social History Household Members: None Housing: Apartment Are you a primary respiratory care instructor to a significant other at home: No Do you presently have visiting nurse or other home services: No Alcohol intake: former Patient Tobacco Use Status: Never used Tobacco Second Hand Smoke Exposure: No service: No Current occupational status: employed and disabled Cognitive needs: No Hearing needs: No Vision needs: Yes Questionnaire Thrive Questionnaire Date Thrive assessed: 12/19/23 I am a: Patient What is your living situation today?: I have a steady place to live Within the past 12 months, did the food you bought not last and you didn't have the money to get more?: Never true Within the past 12 months, did you worry whether your food would run out before you got money to buy more?: Never true Do you have trouble paying for medicines?: No Do you have trouble getting transportation to medical appointments?: Yes Do you have trouble paying your heating and electricity bill?: No Do you have trouble taking care of your child, family member or friend?: No Do you have trouble with day-to-day activities such as bathing, preparing meals, shopping, managing finances, etc.?: Yes Are you currently unemployed and looking for a job?: No Are you interested in more education?: No Please select the resources that you would like help with: None Currently or been in a relationship where the following occur: I choose not to answer THRIVE Score: 1 AUDIT C Alcohol Use Questionnaire (AUDIT-C) 2. How many drinks containing alcohol do you have on a typical day when you are drinking?: 1 or 2 3. How often do you have six or more drinks on one occasion?: Never Total Score: 0 SCOTT-7 AMB Questionnaire SCOTT-7 Date SCOTT - 7 assessed: 12/19/23 Source: Developed by Drs. Yunior Toro, Sharon Sesay, Feliciano Siddiqui and colleagues, with an educational nikolay from [employer]. Physical exam (Primary Care) Tobacco/Smoking Status: Tobacco use Status Tobacco use date assessed 12/19/23 12/19/23 12:24 Patient Tobacco Use Status Never used Tobacco 10/25/24 14:43 Thrive Assessment: Date of Thrive Assessment Date Thrive assessed 10/25/23 11/04/24 12:18 Currently or been in a relationship where the following occur: I choose not to answer Telehealth Telehealth [facility]health [facility] Location of provider rendering services: practice address Location of patient: address on file Patient Identification confirmed using: Name, : Yes Telehealth method: video Patient verbally consented to treatment: Yes Patient verbally consented to billing insurance company: Yes Patient informed of any privacy concerns related to visit: Yes Minutes spent on Phone/Video with Pt.: 12 Coding Level of Care Code Tele Est Pt Level 3 (06918) Diagnoses Newly diagnosed diabetes E11.9 Assessment & Plan Assessment & Plan (1) Newly diagnosed diabetes: Code(s): E11.9 - Type 2 diabetes mellitus without complications Category: Medical Plan . Orders: Orders Comprehensive [place]. Panel Fast Today E11.9 - Type 2 diabetes mellitus without complications TSH reflex Free T4 Today E11.9 - Type 2 diabetes mellitus without complications UA CC w/rflx Micro + Cult Today E11.9 - Type 2 diabetes mellitus without complications Complete Blood Count Auto Diff Today E11.9 - Type 2 diabetes mellitus without complications Lipid Panel Today E11.9 - Type 2 diabetes mellitus without complications Hemoglobin A1c Today E11.9 - Type 2 diabetes mellitus without complications Microalbumin, Random (w Creat) Today E11.9 - Type 2 diabetes mellitus without complications Referrals Ophthalmology Referral E11.9 - Type 2 diabetes mellitus without complications Medications: New glipizide 5 mg PO DAILY 30 tabs 2RF 30 days atorvastatin (Lipitor) 10 mg PO BEDTIME 30 tabs 2RF
== END 2024-11-11 14:53 | disposition home or self-care (01) ==
LOC: HO.HMCC 06:39
PROVIDERS: PCP Nurse Practitioner Family; Visit Provider Nurse Practitioner Family
DX: E11.9 Type 2 diabetes mellitus without complications (principal)

== ENCOUNTER 2024-12-24 06:58 | Outpatient (AMB) | payer OTHER, SELFPAY ==
--- NOTE | 2024-12-24 07:27 | A.OFFPC_ITS ---
Intake Visit Reasons: 6 week follow up DM Allergies metformin Allergy (Intermediate, Verified 11/11/24 07:28) Nausea loratadine (From CLARITIN) Adverse Reaction (Unknown, Verified 12/19/23 12:23) LOOSES HAIR BP pills Adverse Reaction (Unknown, Uncoded 02/17/21 12:23) muscle cramps/ sobia horses Tobacco use date assessed: 12/19/23 Dental Screening Dental Screen Date: 12/19/23 HPI 6 week follow up DM HPI Details History of Present Illness The patient is a 59-year-old female presenting with diabetes management. She reports having adjusted her diet significantly, with blood glucose levels fluctuating between 120 mg/dL and 180 mg/dL, predominantly in the upper range. The patient denies experiencing neuropathy and reports feeling generally well. The patient has met with her nurse navigator and is actively working on dietary modifications. She is aware of the symptoms of hypoglycemia and how to manage them effectively. A referral for an eye exam has been placed as part of her preventative care. Review of Systems - Neurological: Denies neuropathy. - General: Reports feeling good. Plan 1. Diabetes Mellitus The patient's glipizide dosage will be increased from 5 mg to 10 mg to better manage her blood glucose levels, which have been fluctuating between 120 mg/dL and 180 mg/dL. She will continue to work on dietary modifications and will have a follow-up appointment in one month to assess progress and conduct laboratory tests. A referral for an eye exam has been placed to monitor for diabetic retinopathy as part of her preventative care. Discussion Notes I discussed with the patient the importance of managing her blood glucose levels and the decision to increase her glipizide dosage to 10 mg. We reviewed her dietary changes and emphasized the need for continued adherence to these modifications. I also informed her about the referral for an eye exam to monitor for potential diabetic complications. Patient Instructions - Continue with dietary modifications to manage blood glucose levels. - Take glipizide 10 mg as prescribed. - Attend the scheduled eye exam appointm ent. - Follow up in one month for lab tests a nd further evaluation. FOR[facility]LY [facility], [facility] Medical History Lumbar spondylolysis Hypertension Osteoarthritis of both knees Anxiety Carpal tunnel syndrome Asthma Surgical History History of Family History Father Lung cancer Mother Liver cancer Diabetes Maternal Grandmother Diabetes Social History Household Members: None Housing: Apartment Are you a primary career development engineer to a significant other at home: No Do you presently have visiting nurse or other home services: No Alcohol intake: former Patient Tobacco Use Status: Never used Tobacco Second Hand Smoke Exposure: No service: No Current occupational status: employed and disabled Cognitive needs: No Hearing needs: No Vision needs: Yes Questionnaire Thrive Questionnaire Date Thrive assessed: 10/25/23 I am a: Patient What is your living situation today?: I have a steady place to live Within the past 12 months, did the food you bought not last and you didn't have the money to get more?: Never true Within the past 12 months, did you worry whether your food would run out before you got money to buy more?: Never true Do you have trouble paying for medicines?: No Do you have trouble getting transportation to medical appointments?: Yes Do you have trouble paying your heating and electricity bill?: No Do you have trouble taking care of your child, family member or friend?: No Do you have trouble with day-to-day activities such as bathing, preparing meals, shopping, managing finances, etc.?: Yes Are you currently unemployed and looking for a job?: No Are you interested in more education?: No Please select the resources that you would like help with: None Currently or been in a relationship where the following occur: I choose not to answer THRIVE Score: 1 SCOTT-7 AMB Questionnaire SCOTT-7 Date SCOTT - 7 assessed: 12/19/23 Source: Developed by Drs. Yunior Toro, Sharon Sesay, Feliciano Siddiqui and colleagues, with an educational nikolay from [employer]. Physical exam (Primary Care) Tobacco/Smoking Status: Tobacco use Status Tobacco use date assessed 12/19/23 11/11/24 07:30 Patient Tobacco Use Status Never used Tobacco 11/11/24 07:30 Thrive Assessment: Date of Thrive Assessment Date Thrive assessed 10/25/23 12/24/24 06:59 Currently or been in a relationship where the following occur: I choose not to answer Telehealth [facility] Location of provider rendering services: practice address Location of patient: address on file Patient Identification confirmed using: Name, : Yes Telehealth method: video Patient verbally consented to treatment: Yes Patient verbally consented to billing insurance company: Yes Patient informed of any privacy concerns related to visit: Yes Minutes spent on Phone/Video with Pt.: 12 Coding Level of Care Code Tele Est Pt Level 3 (95458) Diagnoses Newly diagnosed diabetes E11.9 Assessment & Plan Assessment & Plan (1) Newly diagnosed diabetes: Code(s): E11.9 - Type 2 diabetes mellitus without complications Category: Medical Plan . Medications: Changed From glipizide 5 mg PO DAILY 30 days 30 tabs 2RF To glipizide 10 mg PO DAILY 30 tabs 2RF 30 days
== END 2024-12-24 07:43 | disposition home or self-care (01) ==
LOC: HO.HMCC 06:59
PROVIDERS: PCP Nurse Practitioner Family; Visit Provider Nurse Practitioner Family
DX: E11.9 Type 2 diabetes mellitus without complications (principal)